=== PATIENT | female | born 1955 | race Caucasian/White ===

== ENCOUNTER 2016-08-08 16:34 | Inpatient (IN) | payer OTHER, MEDICAID ==
[~2016-08-08] VITALS: Ht 149.9 cm; Wt 51.7 kg
[2016-08-08 21:04] VITALS: BP_SYST 233
[2016-08-08 21:30] VITALS: BP_SYST 150
[2016-08-08] MEDS ORDERED: METO-290 PO (21:54)
[2016-08-08] MEDS ORDERED: CLON1PAT10 TD (21:54)
[2016-08-08] MEDS ORDERED: SPIR25TA4 PO (21:54)
[2016-08-08] MEDS ORDERED: ONDA4TAB5 PO (21:54)
[2016-08-08] MEDS ORDERED: METO25TA6 PO (21:54)
[2016-08-08] MEDS ORDERED: GABA-529 PO (21:54)
[2016-08-08] MEDS ORDERED: NEOM500T PO (21:54)
[2016-08-08] MEDS ORDERED: LEVO75TA7 PO (21:54)
[2016-08-08] MEDS ORDERED: LORA1TAB PO (21:54)
[2016-08-08] MEDS ORDERED: NOR10 PO (21:54)
[2016-08-08] MEDS ORDERED: ATEN50TA PO (21:54)
[2016-08-08] MEDS ORDERED: OMEP40CA33 PO (21:54)
[2016-08-08] MEDS ORDERED: ZOLP5TAB2 PO (21:54)
[2016-08-08] MEDS ORDERED: ARTT OP (22:07)
[2016-08-08] MEDS ORDERED: NEU400 PO (22:07)
[2016-08-08] MEDS ORDERED: ZOLPIDEM TARTRATE 5 MG TABLET PO PRN (23:30)
[2016-08-08] MEDS ORDERED: METOPROLOL TARTRATE 25 MG TABLET PO SCH (23:30)
[2016-08-08] MEDS ORDERED: METOCLOPRAMIDE HCL 10 MG TABLET PO PRN (23:30)
[2016-08-08] MEDS ORDERED: LORazepam 1 MG TABLET PO PRN (23:30)
[2016-08-08] MEDS ORDERED: ONDANSETRON 4 MG ODT TAB PO PRN (23:30)
[2016-08-08] MEDS ORDERED: LEVOFLOXACIN 250 MG/D5W 50 ML IV ONE (23:54)
[2016-08-09] MEDS ORDERED: SPIRONOLACTONE 25 MG TABLET (ALDACTONE) PO ONE (00:15)
[2016-08-09] MEDS: LEVOFLOXACIN 250 MG/D5W 50 ML IV SCH (00:17)
[2016-08-09] MEDS: SPIRONOLACTONE 25 MG TABLET (ALDACTONE) PO SCH ×4 (00:18→21:00)
[2016-08-09] MEDS: ACETAMINOPHEN/CODEINE 300 MG-30 MG TABLET PO PRN ×3 (00:19→12:15)
[2016-08-09 00:40] VITALS: BP_SYST 136
[2016-08-09 06:00] VITALS: BP_SYST 196
[2016-08-09] MEDS: LEVOTHYROXINE SODIUM 0.075 MG TABLET PO SCH (06:15)
[2016-08-09] MEDS: amLODIPine BESYLATE 10 MG TABLET PO SCH (06:16)
[2016-08-09] MEDS: INSULIN ASPART 100 UNITS/ML, 10 ML VIAL (NovoLOG) SUBCUT PRN ×3 (06:20→21:03)
[2016-08-09 06:58] LABS: BASOPHILS % (AUTO) 0.9 % (0.0-2.0); EOSINOPHILS # (AUTO) 0.1 K/uL (0.0-0.4); EOSINOPHILS % (AUTO) 3.8 % (0.0-4.0); HEMATOCRIT 29.1 % (36-48); HEMOGLOBIN 9.8 g/dL (12.0-16.0); LYMPHOCYTES % (AUTO) 26.5 % (20.5-51.5); MEAN CORPUSCULAR HEMOGLOBIN 32 pg (27-31); MEAN CORPUSCULAR HGB CONC 34 % (32-36); MEAN CORPUSCULAR VOLUME 94 fL (79.0-98.0); MONOCYTES # (AUTO) 0.3 K/uL (0.0-1.0); MONOCYTES % (AUTO) 7.2 % (1.7-9.3); NEUTROPHILS # (AUTO) 2.3 K/uL (1.8-7.7); NEUTROPHILS % (AUTO) 61.6 % (40.0-70.0); PLATELET COUNT (AUTO) 124 K/uL (130-430); RED BLOOD CELL COUNT(AUTO) 3.11 MIL/uL (4.2-6.2); RED CELL DISTRIBUTION WIDTH 13.2 % (9.0-15.0); WHITE BLOOD COUNT (AUTO) 3.7 K/uL (4.8-10.8)
[2016-08-09] MEDS ORDERED: DEXTROSE 50%-WATER 50 ML DISP.SYRIN IVP PRN ×2 (07:15)
[2016-08-09] MEDS ORDERED: GLUCOSE 15 GM GEL (in 37.5 GM TUBE) PO PRN ×2 (07:15)
[2016-08-09 07:23] LABS: ALBUMIN 2.4 g/dL (3.4-4.8); CALCIUM 7.5 mg/dL (8.4-11.0); CREATININE 1.45 mg/dL (0.55-1.30); INR 1.2 (0.8-1.2); PROTHROMBIN TIME 13.1 SECS (9.5-12.5); TOTAL BILIRUBIN 0.5 mg/dL (0.0-1.0); TOTAL PROTEIN, SERUM 6.2 g/dL (6.4-8.3)
[2016-08-09 09:00] LABS: POTASSIUM 2.8 mmol/L (3.5-5.1)
[2016-08-09] MEDS ORDERED: ATENOLOL 50 MG TABLET (TENORMIN) PO SCH (09:00)
[2016-08-09] MEDS: OMEPRAZOLE 20 MG CAPSULE.DR (PriLOSEC) PO SCH (10:16)
[2016-08-09] MEDS: GABAPENTIN 400 MG CAPSULE PO SCH ×3 (10:18→21:01)
[2016-08-09] MEDS: NEOMYCIN SULFATE 500 MG TABLET PO SCH ×3 (10:18→21:00)
[2016-08-09 10:20] VITALS: BP_SYST 178
[2016-08-09] MEDS: TEARS ARTIFICIAL 15 ML DROPS OP SCH (10:20)
[2016-08-09] MEDS ORDERED: KCL 40 mEq in 100 mL (PREMIX) 40 MEQ, LIDOCAINE JECT 2% PF 100 MG 75 MG in NS 150 ML IV ONE ×2 (10:30→15:30)
[2016-08-09] MEDS ORDERED: POTASSIUM CHLORIDE 40 MEQ, LIDOCAINE JECT 2% PF 100 MG 50 MG in NS 250 ML IV ONE ×8 (11:00→17:00)
[2016-08-09 12:05] VITALS: BP_SYST 154
[2016-08-09] MEDS ORDERED: COMMUNICATION ORDER XX ONE (12:30)
[2016-08-09] MEDS: METOPROLOL TARTRATE 25 MG TABLET PO SCH ×2 (14:23→21:01)
[2016-08-09 16:50] VITALS: BP_SYST 166
[2016-08-09 20:02] VITALS: BP_SYST 169
[2016-08-10 00:15] VITALS: BP_SYST 154
[2016-08-10] MEDS: LEVOFLOXACIN 250 MG/D5W 50 ML IV SCH ×2 (00:59→22:24)
[2016-08-10] MEDS: ACETAMINOPHEN/CODEINE 300 MG-30 MG TABLET PO PRN ×3 (01:04→21:14)
[2016-08-10 04:06] VITALS: BP_SYST 141
[2016-08-10] MEDS: METOPROLOL TARTRATE 25 MG TABLET PO SCH ×3 (06:16→21:08)
[2016-08-10 07:13] LABS: BILIRUBIN,URINE NEGATIVE (NEGATIVE); BLOOD, URINE 1+ (NEGATIVE); CLARITY/URINE HAZY (CLEAR); COLOR,URINE YELLOW (YELLOW); GLUCOSE,URINE NEGATIVE (NEGATIVE); KETONES,URINE NEGATIVE (NEGATIVE); LEUKOCYTE ESTERASE ,URINE TRACE (NEGATIVE); NITRITE, URINE NEGATIVE (NEGATIVE); PROTEIN URINE 2+ (NEGATIVE); UROBILINOGEN,URINE 0.2 (0.2-1.0)
[2016-08-10 07:35] LABS: BACTERIA,URINE FEW /HPF (None Seen); MUCUS,URINE None Seen /LPF (None Seen); RBC,URINE 0-3 /HPF (0-3); WBC,URINE 20-50 /HPF (0-3)
[2016-08-10 09:05] VITALS: BP_SYST 183
[2016-08-10] MEDS: NEOMYCIN SULFATE 500 MG TABLET PO SCH ×3 (09:27→21:08)
[2016-08-10] MEDS: LEVOTHYROXINE SODIUM 0.075 MG TABLET PO SCH (09:27)
[2016-08-10] MEDS: amLODIPine BESYLATE 10 MG TABLET PO SCH (09:27)
[2016-08-10] MEDS: SPIRONOLACTONE 25 MG TABLET (ALDACTONE) PO SCH ×3 (09:28→21:08)
[2016-08-10] MEDS: OMEPRAZOLE 20 MG CAPSULE.DR (PriLOSEC) PO SCH (09:28)
[2016-08-10] MEDS: GABAPENTIN 400 MG CAPSULE PO SCH ×3 (09:28→21:09)
[2016-08-10] MEDS: TEARS ARTIFICIAL 15 ML DROPS OP SCH (09:29)
[2016-08-10 11:43] VITALS: BP_SYST 174
[2016-08-10 12:33] LABS: CALCIUM 8.2 mg/dL (8.4-11.0); CREATININE 1.74 mg/dL (0.55-1.30); POTASSIUM 4.4 mmol/L (3.5-5.1)
[2016-08-10] MEDS: INSULIN ASPART 100 UNITS/ML, 10 ML VIAL (NovoLOG) SUBCUT PRN ×2 (12:46→21:11)
[2016-08-10] MEDS: cloNIDine HCL 0.1 MG TABLET PO PRN (14:27)
[2016-08-10 17:03] VITALS: BP_SYST 146
[2016-08-10 19:45] VITALS: BP_SYST 145
[2016-08-11] VITALS (9 sets, daily range): BP systolic 139–173
[2016-08-11] MEDS: METOPROLOL TARTRATE 25 MG TABLET PO SCH ×3 (06:04→21:16)
[2016-08-11] MEDS: LEVOTHYROXINE SODIUM 0.075 MG TABLET PO SCH (06:04)
[2016-08-11] MEDS: ACETAMINOPHEN/CODEINE 300 MG-30 MG TABLET PO PRN ×2 (06:05→14:42)
[2016-08-11] MEDS: INSULIN ASPART 100 UNITS/ML, 10 ML VIAL (NovoLOG) SUBCUT PRN ×3 (06:14→21:26)
[2016-08-11 07:31] LABS: BASOPHILS % (AUTO) 0.2 % (0.0-2.0); EOSINOPHILS # (AUTO) 0.1 K/uL (0.0-0.4); EOSINOPHILS % (AUTO) 2.1 % (0.0-4.0); HEMATOCRIT 33.6 % (36-48); HEMOGLOBIN 11.2 g/dL (12.0-16.0); LYMPHOCYTES # (AUTO) 0.9 K/uL (1.0-5.5); LYMPHOCYTES % (AUTO) 18.8 % (20.5-51.5); MEAN CORPUSCULAR HEMOGLOBIN 31 pg (27-31); MEAN CORPUSCULAR HGB CONC 33 % (32-36); MEAN CORPUSCULAR VOLUME 93 fL (79.0-98.0); MONOCYTES # (AUTO) 0.3 K/uL (0.0-1.0); MONOCYTES % (AUTO) 5.4 % (1.7-9.3); NEUTROPHILS # (AUTO) 3.6 K/uL (1.8-7.7); NEUTROPHILS % (AUTO) 73.5 % (40.0-70.0); PLATELET COUNT (AUTO) 137 K/uL (130-430); RED CELL DISTRIBUTION WIDTH 13.3 % (9.0-15.0)
[2016-08-11 07:57] LABS: WHITE BLOOD COUNT (AUTO) 4.9 K/uL (4.8-10.8)
[2016-08-11 08:00] LABS: ALBUMIN 2.6 g/dL (3.4-4.8); CALCIUM 8.2 mg/dL (8.4-11.0); CREATININE 1.99 mg/dL (0.55-1.30); POTASSIUM 4.9 mmol/L (3.5-5.1); THYROID STIMULATING HORMONE 4.52 uIu/mL (0.34-4.82); TOTAL BILIRUBIN 0.4 mg/dL (0.0-1.0); TOTAL PROTEIN, SERUM 6.9 g/dL (6.4-8.3)
[2016-08-11] MEDS: LACTOBACILLUS RHAMNOSUS GG 1 CAP CAPSULE PO SCH ×2 (09:00→20:48)
[2016-08-11] MEDS: OMEPRAZOLE 20 MG CAPSULE.DR (PriLOSEC) PO SCH (09:01)
[2016-08-11] MEDS: NEOMYCIN SULFATE 500 MG TABLET PO SCH ×3 (09:01→20:48)
[2016-08-11] MEDS: amLODIPine BESYLATE 10 MG TABLET PO SCH (09:03)
[2016-08-11] MEDS: SPIRONOLACTONE 25 MG TABLET (ALDACTONE) PO SCH ×3 (09:04→20:40)
[2016-08-11] MEDS: TEARS ARTIFICIAL 15 ML DROPS OP SCH (09:15)
[2016-08-11] MEDS: GABAPENTIN 300 MG CAPSULE PO SCH ×3 (09:19→20:48)
[2016-08-11] MEDS: cloNIDine HCL 0.1 MG TABLET PO PRN ×2 (12:03→20:39)
[2016-08-11] MEDS ORDERED: hydrALAZINE HCL 25 MG TABLET PO ONE (16:30)
[2016-08-11] MEDS: hydrALAZINE HCL 25 MG TABLET PO SCH (20:42)
[2016-08-11] MEDS: LEVOFLOXACIN 250 MG/D5W 50 ML IV SCH (22:26)
[2016-08-12 04:02] VITALS: BP_SYST 141
[2016-08-12] MEDS: ACETAMINOPHEN/CODEINE 300 MG-30 MG TABLET PO PRN ×2 (05:35→10:31)
[2016-08-12] MEDS: METOPROLOL TARTRATE 25 MG TABLET PO SCH ×2 (05:36→13:59)
[2016-08-12 08:20] VITALS: BP_SYST 159
[2016-08-12] MEDS: OMEPRAZOLE 20 MG CAPSULE.DR (PriLOSEC) PO SCH (11:31)
[2016-08-12] MEDS: GABAPENTIN 300 MG CAPSULE PO SCH ×2 (11:31→15:42)
[2016-08-12] MEDS: LEVOTHYROXINE SODIUM 0.075 MG TABLET PO SCH (11:32)
[2016-08-12] MEDS: NEOMYCIN SULFATE 500 MG TABLET PO SCH ×2 (11:32→15:42)
[2016-08-12] MEDS: LACTOBACILLUS RHAMNOSUS GG 1 CAP CAPSULE PO SCH (11:32)
[2016-08-12] MEDS: amLODIPine BESYLATE 10 MG TABLET PO SCH (11:33)
[2016-08-12] MEDS: hydrALAZINE HCL 25 MG TABLET PO SCH (11:33)
[2016-08-12] MEDS: SPIRONOLACTONE 25 MG TABLET (ALDACTONE) PO SCH ×2 (11:34→15:42)
[2016-08-12] MEDS: TEARS ARTIFICIAL 15 ML DROPS OP SCH (11:39)
[2016-08-12] MEDS: INSULIN ASPART 100 UNITS/ML, 10 ML VIAL (NovoLOG) SUBCUT PRN ×2 (11:43→17:21)
[2016-08-12 12:33] VITALS: BP_SYST 142
[2016-08-12 15:57] VITALS: BP_SYST 142
[2016-08-12 16:08] LABS: HEPATITIS A AB, IgM Negative (Negative); HEPATITIS B CORE AB, IgM Negative (Negative); HEPATITIS B SURFACE AG Negative (Negative)
[2016-08-12 16:35] VITALS: BP_SYST 152
[2016-08-14] MEDS ORDERED: cloNIDine HCL 0.2 MG/24 HR PATCH.TDWK TD SCH (09:00)
== END 2016-08-12 17:46 | DRG 371 ==
LOC: SMU 19:50
PROVIDERS: ADMIT Internal Medicine Hospice and Palliative Medicine; ATTEND Internal Medicine Infectious Disease
DX: K65.2 Spontaneous bacterial peritonitis (principal); K76.7 Hepatorenal syndrome; D61.818 Other pancytopenia; E44.0 Moderate protein-calorie malnutrition; N39.0 Urinary tract infection, site not specified; R18.8 Other ascites; K74.60 Unspecified cirrhosis of liver; E87.6 Hypokalemia; E11.22 Type 2 diabetes mellitus with diabetic chronic kidney disease; B19.20 Unspecified viral hepatitis C without hepatic coma; I12.9 Hypertensive chronic kidney disease with stage 1 through stage 4 chronic kidney disease, or unspecified chronic kidney disease; N18.9 Chronic kidney disease, unspecified; E03.9 Hypothyroidism, unspecified; K21.9 Gastro-esophageal reflux disease without esophagitis
CPT/HCPCS: 36415; 71010; 74181; 76700-TC; 76705; 80048; 80053; 80074; 81000-TC; 82105; 82140-TC; 82962; 83036; 83690-TC; 83735-TC; 84443-TC; 85025; 85610-TC; 85730-TC; 87045-TC; 87046; 87081; 87086; 89055; 97530-GP; J1815; J1956; J3480; J7050

== ENCOUNTER 2016-08-22 05:35 | Inpatient (IN) | payer OTHER, MEDICAID ==
[~2016-08-22] VITALS: Ht 149.9 cm; Wt 57.6 kg
[2016-08-22] VITALS (15 sets, daily range): BP systolic 114–162
[~2016-08-22 05:35] MED LIST: ARTT OP; ATEN50TA PO; CLON1PAT10 TD; LEVO75TA7 PO; LORA1TAB PO; METO-290 PO; METO25TA6 PO; NEOM500T PO; NEU400 PO; NOR10 PO; OMEP40CA33 PO; ONDA4TAB5 PO; SPIR25TA4 PO; ZOLP5TAB2 PO
--- NOTE | 2016-08-22 05:43 | NUR ---
Patient to ER bed 1 to gown for evaluation. Side rails up.
[2016-08-22] MEDS ORDERED: NACL 0.9% 1,000 ML IV ONE (05:54)
[2016-08-22] MEDS ORDERED: ONDANSETRON HCL 4 MG/2 ML VIAL IVP ONE (06:00)
--- NOTE | 2016-08-22 06:05 | NUR ---
O2 sat 97% on 10L via Non rebreather mask
--- NOTE | 2016-08-22 06:05 | NUR ---
[facility], C/O N/V AND COUGHING SINCE YESTERDAY, SOB, LEFT CHEST PAIN, ABDOMINAL PAIN, HIP AND LEG PAIN. PAIN LEVEL 6/10. PT O2 SAT 90% VIA MASK. MD AWARE. SAFETY MAINTAINED. CONTINUE TO MONITOR
[2016-08-22] MEDS ORDERED: METO25TA3 PO (06:23)
[2016-08-22 06:24] LABS: BASOPHILS % (AUTO) 0.2 % (0.0-2.0); EOSINOPHILS % (AUTO) 0.1 % (0.0-4.0); HEMOGLOBIN 8.7 g/dL (12.0-16.0); LYMPHOCYTES # (AUTO) 0.6 K/uL (1.0-5.5); LYMPHOCYTES % (AUTO) 7.8 % (20.5-51.5); MEAN CORPUSCULAR HEMOGLOBIN 30 pg (27-31); MEAN CORPUSCULAR HGB CONC 32 % (32-36); MEAN CORPUSCULAR VOLUME 93 fL (79.0-98.0); MONOCYTES % (AUTO) 3.6 % (1.7-9.3); NEUTROPHILS % (AUTO) 88.3 % (40.0-70.0); PLATELET COUNT (AUTO) 208 K/uL (130-430); RED BLOOD CELL COUNT(AUTO) 2.92 MIL/uL (4.2-6.2); RED CELL DISTRIBUTION WIDTH 13.8 % (9.0-15.0); WHITE BLOOD COUNT (AUTO) 7.9 K/uL (4.8-10.8)
[2016-08-22] MEDS ORDERED: SPIR50TA26 PO (06:24)
[2016-08-22 06:25] LABS: MONOCYTES # (AUTO) 0.3 K/uL (0.0-1.0)
[2016-08-22] MEDS ORDERED: HYDR100T25 PO (06:26)
[2016-08-22 06:28] LABS: CALCIUM 8.9 mg/dL (8.4-11.0); CREATININE 2.26 mg/dL (0.55-1.30)
[2016-08-22] MEDS ORDERED: DULR10 RC (06:28)
[2016-08-22] MEDS ORDERED: MAGN400O4 PO (06:29)
[2016-08-22 06:30] LABS: INR 1.2 (0.8-1.2); PROTHROMBIN TIME 13.1 SECS (9.5-12.5)
[2016-08-22] MEDS ORDERED: ACET-2165 PO ×2 (06:30→06:31)
[2016-08-22] MEDS ORDERED: ACET-1010 PO (06:32)
[2016-08-22] MEDS ORDERED: TYC3 PO (06:34)
[2016-08-22] MEDS ORDERED: LORA-258 PO (06:35)
[2016-08-22] MEDS ORDERED: NA P118E RC (06:37)
[2016-08-22 06:42] LABS: BLOOD GAS PH 7.345 (7.350-7.450)
[2016-08-22 06:43] LABS: ABG TOTAL HEMOGLOBIN 9.4 G/dL (12.0-18.0)
[2016-08-22 06:43] LABS: ALBUMIN 3.1 g/dL (3.4-4.8); TOTAL BILIRUBIN 0.3 mg/dL (0.0-1.0); TOTAL PROTEIN, SERUM 7.7 g/dL (6.4-8.3)
[2016-08-22 06:44] LABS: BLOOD GAS COHb% 0.3 % (0.5-1.5); BLOOD GAS HHB 4.2 % (0.0-6.0); BLOOD O2Hb% 95.5 % (94.0-97.0)
[2016-08-22] MEDS ORDERED: FLOEARD OP (06:46)
[2016-08-22 06:49] LABS: POTASSIUM 6.7 mmol/L (3.5-5.1)
--- NOTE | 2016-08-22 07:00 | NUR ---
Medication reconciliation completed with information provided by [employer]. Any prior medication reconciliation on file was reviewed and corrected.
[2016-08-22 07:03] LABS: BILIRUBIN,URINE NEGATIVE (NEGATIVE); BLOOD, URINE 1+ (NEGATIVE); CLARITY/URINE CLEAR (CLEAR); COLOR,URINE YELLOW (YELLOW); GLUCOSE,URINE NEGATIVE (NEGATIVE); KETONES,URINE NEGATIVE (NEGATIVE); LEUKOCYTE ESTERASE ,URINE NEGATIVE (NEGATIVE); NITRITE, URINE NEGATIVE (NEGATIVE); PROTEIN URINE 3+ (NEGATIVE); UROBILINOGEN,URINE 0.2 (0.2-1.0)
[2016-08-22 07:14] LABS: BACTERIA,URINE MANY /HPF (None Seen); WBC,URINE 0-3 /HPF (0-3)
[2016-08-22] MEDS ORDERED: SODIUM POLYSTYRENE SULFONATE 15 GM/60 ML UDBTL PO ONE (07:15)
--- NOTE | 2016-08-22 07:15 | NUR ---
RECEIVED REPORT FROM AUDIOMETRIC TECHNICIAN
--- NOTE | 2016-08-22 07:20 | NUR ---
RECEIVED PATIENT ON ER BED 1 ALERT,AWAKE AND ORIENTED.WITH BIPAP;TOLERATING SETTINGS WELL.WITH IVF OF NS INFUSING WELL;NO SIGNS AND SYMPTOMS OF INFILTRATION
[2016-08-22] MEDS ORDERED: PROCHLORPERAZINE EDISYLATE 10 MG/2 ML VIAL ONE (07:27)
[2016-08-22] MEDS ORDERED: DEXTROSE 50% JECT 50 ML DISP.SYRIN IVP ONE (07:30)
[2016-08-22] MEDS ORDERED: INSULIN REGULAR, HUMAN 10 UNITS/0.1 ML INJ IVP ONE (07:30)
[2016-08-22] MEDS ORDERED: CALCIUM GLUCONATE 1 GM/10 ML VIAL IVP ONE (07:30)
--- NOTE | 2016-08-22 07:32 | NUR ---
PATIENT GIVEN KAYEXALATE BUT STARTED VOMITING;VOMITING IS GREENISH IN COLOR;MODERATE AMOUNT;COMPAZINE GIVEN ORDERED Addendum: 08/22/16 at 0804 by KIRT DISCONTINUED BIPAP ORDERED.CHANGED TO NON-REBREATHER MASK AT 15 L/MAS ORDERED;O2 SAT=94%
[2016-08-22] MEDS ORDERED: ALBUTEROL SULFATE 0.083% 2.5 MG/3 ML VIAL.NEB INH ONE (07:45)
--- NOTE | 2016-08-22 08:06 | NUR ---
PATIENT ON BED ASLEEP WITH ONGOING BREATHING TREATMENT;TOLERATING WELL
[2016-08-22] MEDS ORDERED: PROCHLORPERAZINE EDISYLATE 10 MG/2 ML VIAL IVP ONE (08:15)
[2016-08-22] MEDS ORDERED: FUROSEMIDE 100 MG/10 ML VIAL IVP ONE (08:45)
[2016-08-22] MEDS ORDERED: NITROGLYCERIN 1 INCH (GM) OINT. TP ONE (08:45)
[2016-08-22] MEDS ORDERED: FUROSEMIDE 100 MG/10 ML VIAL ONE (09:08)
[2016-08-22] MEDS ORDERED: NITROGLYCERIN 1 INCH (GM) OINT. ONE (09:09)
--- NOTE | 2016-08-22 09:14 | NUR ---
Patient will be admitted to care of DR Jerez. Admitted to ICU unit. Will go to room 5 . Belongings list completed. Summary report printed. Report will be given at bedside.
--- NOTE | 2016-08-22 09:40 | NUR ---
ADMISSION NOTES. PT RECEIVED IN ROOM 5, ON NON REBREATHER MASK AT 10 L, PT DROWSY, HARDLY OPENS HER EYES, AUDIBLE WHEEZING, RHONCHI TO RIGHT SIDE, ADMITTING DX FLUID OVERLOAD, PT RESPONSIVE TO PAINFUL STIMULI, IV IN RIGHT A/C, HURTADO CATHETER INTACT WITH GOOD AMOUNT OF URINE, NO PERIPHERAL EDEMA, DRY SCAB ON TOP OF HER RIGHT FOOT NOTED.
[2016-08-22] MEDS ORDERED: LEVOFLOXACIN 500 MG/D5W 100 ML IV ONE (09:45)
[2016-08-22] MEDS ORDERED: cefTRIAXone 1 GM in D5W 50 ML IV SCH (09:45)
[2016-08-22] MEDS ORDERED: ACETAMINOPHEN/CODEINE 300 MG-30 MG TABLET PO PRN (10:00)
[2016-08-22] MEDS ORDERED: ACETAMINOPHEN 500 MG TABLET PO PRN (10:00)
[2016-08-22] MEDS ORDERED: LORazepam 1 MG TABLET PO PRN (10:00)
[2016-08-22] MEDS ORDERED: BISACODYL 10 MG/SUPPOSITORY RC PRN (10:00)
--- NOTE | 2016-08-22 10:15 | NUR ---
O2. DR GUTIERREZ IN THE UNIT. PLACED PT ON O2 VIA NASAL CANNULA AT [address] GUTIERREZ.
--- NOTE | 2016-08-22 10:20 | NUR ---
CONSULT: DR. LAMB CONSULT CALLED RE: CHF/PNA SPOKE TO ASHANTI.
--- NOTE | 2016-08-22 10:20 | NUR ---
FAMILY. PT'S SISTER DANICA CALLED. UPDATE ON STATUS GIVEN. PT'S SISTER STATED THAT PT DESIRED NOT TO BE RESUSCITATED IF PHYSICAL SITUATION BECOMES WORST. ASKED FAMILY TO BRING OVER COPY OF DURABLE POWER OF POWER SHOVEL OPERATOR AND PT'S CODE STATUS.
--- NOTE | 2016-08-22 10:23 | NUR ---
CONSULT: DR. Cony CORREA CONSULT CALLED RE: PNEUMONIA SPOKE TO IMAN (MD EXCHANGE).
--- NOTE | 2016-08-22 10:25 | NUR ---
CONSULT: DR. DAVIDSON CONSULT CALLED RE: TINO, ABNORMAL BUN/CREATININE. SPOKE TO SEAN (MD EXCHANGE).
--- NOTE | 2016-08-22 10:26 | NUR ---
CONSULT: DR. PURCELL CONSULT CALLED RE: CHF SPOKE TO BOY (MD EXCHANGE)
[2016-08-22 10:53] LABS: CALCIUM 8.8 mg/dL (8.4-11.0); CREATININE 2.29 mg/dL (0.55-1.30); POTASSIUM 5.5 mmol/L (3.5-5.1)
[2016-08-22] MEDS ORDERED: VANCOMYCIN HCL 1 GM/NS PREMIX 250 ML IV SCH ×2 (11:30)
--- NOTE | 2016-08-22 11:50 | NUR ---
RT NOTES Sputum induction done, which the pt. tolerated well. Pt is alert and able to demonstrate understanding of coughing exercises and sputum collection in a specimen sample cup, which was provided. Unable to produce any sputum at this time.
[2016-08-22] MEDS ORDERED: SODIUM CL 3% FOR INHALATION 15 ML VIAL.NEB INH ONE (11:51)
[2016-08-22] MEDS: NACL 0.9% 1,000 ML IV SCH ×2 (12:00→21:33)
--- NOTE | 2016-08-22 13:00 | NUR ---
O2. PT'S O2 SATURATION WENT TO 84 TO 89%, ENCOURAGED PT TO TAKE DEEP BREATHING, O2 SAT WENT TO BE BETWEEN 88 TO 90%, O2 INCREASED TO 6 L PER MIN, SATURATION NOTED 96%.
--- NOTE | 2016-08-22 13:15 | NUR ---
TO RADIOLOGY DEPT. TRANSPORTED PT TO CT SCAN VIA BED WITH PORTABLE CARDIAC MONITORING.
[2016-08-22] MEDS ORDERED: IPRATROPIUM BROM 0.5 MG/2.5 ML VIAL.NEB (ATROVENT) INH PRN (14:30)
[2016-08-22] MEDS ORDERED: FUROSEMIDE 40 MG/4 ML VIAL IVP ONE (14:30)
[2016-08-22] MEDS ORDERED: ALBUTEROL SULFATE 0.083% 2.5 MG/3 ML VIAL.NEB INH PRN (14:30)
[2016-08-22] MEDS ORDERED: methylPREDNISolone SOD SUCC 40 MG/ML VIAL IVP ONE (14:30)
[2016-08-22] MEDS: GABAPENTIN 400 MG CAPSULE PO SCH ×2 (14:44→21:33)
[2016-08-22] MEDS: METOPROLOL SUCCINATE 25 MG TAB.SR.24H (TOPROL XL) PO SCH ×2 (14:45→21:33)
[2016-08-22] MEDS: MORPHINE 4 MG/ML INJ. SYRINGE IVP PRN (14:46)
[2016-08-22 15:49] LABS: BARBITURATE, URINE NEGATIVE (NEG <=200); BENZODIAZEPINE, URINE NEGATIVE (NEG <=150); CANNABINOID, URINE NEGATIVE (NEG <=50); COCAINE, URINE NEGATIVE (NEG <=150); METHAMPHETAMINES SCREEN,URINE NEGATIVE (NEG <=500); OPIATE, URINE POSITIVE (NEG <=100); PHENCYCLIDINE SCREEN,URINE NEGATIVE (NEG <=25); UR TRICYCLIC ANTIDEPRESSANTS NEGATIVE (NEG <=300); URINE AMPHETAMINE NEGATIVE (NEG <=500); URINE METHADONE NEGATIVE (NEG <=200); URINE OXYCODONE SCREEN NEGATIVE (NEG <=100); URINE PROPOXYPHENE SCREEN NEGATIVE (NEG <=300)
--- NOTE | 2016-08-22 16:30 | NUR ---
PICC. TIME OUT DONE PRIOR TO PICC INSERTION.
--- NOTE | 2016-08-22 16:45 | NUR ---
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
[2016-08-22] MEDS: PIPERACILLIN/TAZO 2.25G/DEX-IS 50 ML IV SCH (17:29)
--- NOTE | 2016-08-22 17:30 | NUR ---
PICC. PICC NURSE STATED THAT HE HAD SEEN THE XRAY RESULT. PICC WAS PULLED BACK RECOMMENDED BY RADIOLOGIST.
--- NOTE | 2016-08-22 19:00 | NUR ---
XRAY. CALLED JUAN OF RADIOLOGY DEPT. DR GUTIERREZ IN THE UNIT, GASTROGRAFFIN DYE TO BE USED FOR SMALL BOWEL FOLLOW THROUGH.
[2016-08-22] MEDS: VANCOMYCIN HCL 1,000 MG in NS 250 ML IV SCH (19:15)
--- NOTE | 2016-08-22 19:15 | NUR ---
Initial Notes Received patient resting in bed. A/o x 2. No s/s of any distress noted. PICC line noted to TESSA double lumen, no infiltrate, good blood return noted. Mild weakness noted to all extremities, bed rest. F/C noted with clear yellow urine. Bed in low position with call light within reach. Will cont to monitor.
[2016-08-22] MEDS ORDERED: GASTROGRAFIN 120 ML ONE (19:28)
[2016-08-22] MEDS: IPRATROPIUM BROM 0.5 MG/2.5 ML VIAL.NEB (ATROVENT) INH SCH (19:28)
[2016-08-22] MEDS: ALBUTEROL SULFATE 0.083% 2.5 MG/3 ML VIAL.NEB INH SCH (19:28)
[2016-08-22] MEDS: FUROSEMIDE 100 MG in D5W 90 ML IV SCH (19:50)
[2016-08-22] MEDS ORDERED: ZOLPIDEM TARTRATE 5 MG TABLET PO PRN (21:00)
[2016-08-22] MEDS: LACTOBACILLUS RHAMNOSUS GG 1 CAP CAPSULE PO SCH (21:31)
[2016-08-22] MEDS: hydrALAZINE HCL 25 MG TABLET PO SCH (21:31)
[2016-08-23] VITALS (16 sets, daily range): BP systolic 143–173
--- NOTE | 2016-08-23 | NUR ---
Pt resting Pt is resting comfortably at this time. No s/s of pain or any distress noted. Bed in low position with call light within reach. Will cont to monitor.
[2016-08-23] MEDS: IPRATROPIUM BROM 0.5 MG/2.5 ML VIAL.NEB (ATROVENT) INH SCH ×4 (01:28→19:05)
[2016-08-23] MEDS: ALBUTEROL SULFATE 0.083% 2.5 MG/3 ML VIAL.NEB INH SCH ×4 (01:28→19:05)
--- NOTE | 2016-08-23 03:00 | NUR ---
Decreased o2 at 3L Sabrina RT decreased O2 to 3L via n/c. Will monitor patient.
--- NOTE | 2016-08-23 03:20 | NUR ---
Withdrew blood from PICC Withdrew blood from PICC for trop test. No infiltrate and with good blood return.
[2016-08-23] MEDS: MORPHINE 4 MG/ML INJ. SYRINGE IVP PRN ×5 (03:22→23:23)
--- NOTE | 2016-08-23 03:40 | NUR ---
Admin Morphine PRN for pain Admin Morphine PRN for 10/10 abd pain. Will reassess after one hour.
--- NOTE | 2016-08-23 05:41 | NUR ---
Assisted with AM care Assited pt with AM care with oral care. No s/s of any pain noted. Call light within reach. Will cont to monitor.
--- NOTE | 2016-08-23 06:00 | NUR ---
Decreased O2 to 2L Sabrina RT decreased o2 to 2L via n/c. Will cont to monitor patient.
[2016-08-23] MEDS: METOPROLOL SUCCINATE 25 MG TAB.SR.24H (TOPROL XL) PO SCH ×3 (06:06→21:44)
[2016-08-23] MEDS: LEVOTHYROXINE SODIUM 0.075 MG TABLET PO SCH (06:06)
[2016-08-23] MEDS: NACL 0.9% 1,000 ML IV SCH (06:08)
[2016-08-23] MEDS: PIPERACILLIN/TAZO 2.25G/DEX-IS 50 ML IV SCH ×4 (06:21→23:18)
[2016-08-23 06:52] LABS: BASOPHILS % (AUTO) 0.1 % (0.0-2.0); HEMATOCRIT 25.1 % (36-48); HEMOGLOBIN 8.2 g/dL (12.0-16.0); LYMPHOCYTES # (AUTO) 0.3 K/uL (1.0-5.5); LYMPHOCYTES % (AUTO) 4.6 % (20.5-51.5); MEAN CORPUSCULAR HEMOGLOBIN 31 pg (27-31); MEAN CORPUSCULAR HGB CONC 33 % (32-36); MONOCYTES # (AUTO) 0.1 K/uL (0.0-1.0); MONOCYTES % (AUTO) 1.4 % (1.7-9.3); NEUTROPHILS # (AUTO) 5.8 K/uL (1.8-7.7); NEUTROPHILS % (AUTO) 93.9 % (40.0-70.0); PLATELET COUNT (AUTO) 155 K/uL (130-430); RED BLOOD CELL COUNT(AUTO) 2.65 MIL/uL (4.2-6.2); WHITE BLOOD COUNT (AUTO) 6.2 K/uL (4.8-10.8)
--- NOTE | 2016-08-23 07:12 | NUR ---
Final notes Pt is awake and more alert at this time, waiting for breakfast. No s/s of any distress noted. All needs met and anticipated by noc nurses. Bed in low position with side rails up x2. Call light within reach. Endorsed
[2016-08-23 07:14] LABS: CALCIUM 8.5 mg/dL (8.4-11.0)
--- NOTE | 2016-08-23 07:15 | NUR ---
ASSUMPTION OF CARE RECEIVED REPORT FROM ANEESH HORVATH. PT AWAKE, ALERT AND ORIENTED IN BED. 2L O2 NASAL CANNULA ON PT WITH 98% O2 SATURATION. IV PATENT AND INTACT WITH IV FLUIDS RUNNING. VITAL SIGNS STABLE. NO OBSERVED SIGNS OF DISTRESS. PT DENIES PAIN AND OTHER DIFFICULTIES AT THIS TIME. PT VERBALIZES UNDERSTANDING OF USE OF CALL LIGHT. WILL CONTINUE TO MONITOR PT.
--- NOTE | 2016-08-23 07:45 | NUR ---
CALLED SPOKE TO DR LAMB REGARDING CRITICAL ABG VALUES. NO NEW ORDERS RECEIVED.
[2016-08-23 07:46] LABS: ALBUMIN 2.8 g/dL (3.4-4.8); CREATININE 2.03 mg/dL (0.55-1.30); PHOSPHORUS 6.2 mg/dL (2.7-4.5); THYROID STIMULATING HORMONE 2.58 uIu/mL (0.34-4.82); TOTAL BILIRUBIN 0.3 mg/dL (0.0-1.0); TOTAL PROTEIN, SERUM 7.2 g/dL (6.4-8.3)
--- NOTE | 2016-08-23 07:48 | NUR ---
Nutrition Update Tiago Scale 18 noted. Pt admitted for: Fluid overload. Diet: Renal Standard 2 gm Na, 3gm K, 1 gm Phosphorus BMI: 25.7 kg/m2. RD to follow per nutrition care standards.
[2016-08-23 07:58] LABS: IRON (SERUM) 38 mcg/dL (37-145); TOTAL IRON BIND. CAPACITY 159 ug/dL (250-450)
[2016-08-23 08:03] LABS: BLOOD GAS BASE EXCESS -6.6 mmol/L (-3.0-3.0)
[2016-08-23 08:04] LABS: ABG TOTAL HEMOGLOBIN 9.5 G/dL (12.0-18.0); BLOOD GAS COHb% 0.2 % (0.5-1.5); BLOOD GAS HHB 12.2 % (0.0-6.0); BLOOD O2Hb% 87.2 % (94.0-97.0)
[2016-08-23 08:09] LABS: POTASSIUM 5.9 mmol/L (3.5-5.1)
[2016-08-23 08:15] LABS: MEAN CORPUSCULAR VOLUME 95 fL (79.0-98.0)
--- NOTE | 2016-08-23 08:39 | NUR ---
CALLED SPOKE TO DR TALBOT REGARDING CRITICAL CHEMISTRY VALUES. NEW ORDERS RECEIVED.
[2016-08-23] MEDS ORDERED: SODIUM POLYSTYRENE SULFONATE 15 GM/60 ML UDBTL PO ONE (08:45)
[2016-08-23] MEDS: hydrALAZINE HCL 25 MG TABLET PO SCH ×2 (08:52→21:43)
[2016-08-23] MEDS: TEARS ARTIFICIAL 15 ML DROPS OP SCH (08:52)
[2016-08-23] MEDS: GABAPENTIN 400 MG CAPSULE PO SCH ×3 (08:53→21:43)
[2016-08-23] MEDS: LACTOBACILLUS RHAMNOSUS GG 1 CAP CAPSULE PO SCH ×2 (08:53→21:42)
[2016-08-23] MEDS: FUROSEMIDE 100 MG in D5W 90 ML IV SCH (09:14)
--- NOTE | 2016-08-23 10:20 | NUR ---
XRAY. CURING PICKLING PACKER HERE TO START SMALL BOWEL FOLLOW THROUGH.
[2016-08-23] MEDS ORDERED: methylPREDNISolone SOD SUCC/PF 62.5 MG/ML VIAL IVP ONE (10:30)
--- NOTE | 2016-08-23 11:30 | NUR ---
HYGIENE. PT NOTED TO HAVE BROWNISH STAIN TO HER BOTTOM SHEET WHEN SHE TURNED IN BED. LOOSE STOOL NOTED. INCONTINENT CARE PROVIDED. Z-GUARD LOTION APPLIED TO SACRAL AREA TO PREVENT ANY FURTHER SKIN INJURY.
[2016-08-23] MEDS: 0.45% NACL 1,000 ML IV SCH (12:33)
--- NOTE | 2016-08-23 14:00 | NUR ---
FAMILY. PT'S SISTER CAME IN. SHE BROUGHT UP THE CODE STATUS. PT FIRMLY SAID THAT SHE DID NOT WANT TO BE ON LIFE [employer] IF EVER SHE GOES INTO CARDIAC ARREST. FAMILY WILL BE BRINGING IN A COPY OF HER MEDICAL DECISION AND DPOA.
--- NOTE | 2016-08-23 14:15 | NUR ---
MEDS. PT COMPLETED ABDOMINAL XRAYS. KAYEXALATE 60 GRAMS ADMINISTERED.
[2016-08-23] MEDS: ONDANSETRON HCL 4 MG/2 ML VIAL IVP PRN (15:06)
--- NOTE | 2016-08-23 15:06 | NUR ---
MEDS. PT ANXIOUSLY CALLING FOR HELP, HAD LARGE AMOUNT OF YELLOWISH EMESIS, ORAL CARE, SKIN CARE PROVIDED. MEDICATED WITH ZOFRAN 4 MG IVP.
--- NOTE | 2016-08-23 15:55 | NUR ---
ENDORSEMENT OF CARE PT SAFELY TRANSFERRED TO TELEMETRY ROOM 112B VIA BED BY TWO RNs. PT ON 3L NC VIA PORTABLE O2 TANK, PORTABLE VITAL SIGN MONITOR IN USE. VITAL SIGNS STABLE, NO SIGNS OF DISTRESS NOTED. BEDSIDE REPORT GIVEN TO ANEESH MIRELES.
[2016-08-23] MEDS ORDERED: COMMUNICATION ORDER XX ONE ×3 (16:45→17:15)
[2016-08-23] MEDS: OFLOXACIN 0.3% OPHTHALMIC DROPS 5 ML OP SCH ×3 (17:00→21:45)
[2016-08-23] MEDS ORDERED: PREDFORTE OP SCH (17:15)
[2016-08-23] MEDS: NEOMYCIN SULFATE 500 MG TABLET PO SCH ×3 (17:26→23:30)
[2016-08-23] MEDS ORDERED: PATIENT'S OWN EENT OP SCH (17:30)
--- NOTE | 2016-08-23 17:30 | NUR ---
CM DC PLANNING: ASSESSMENT ATTEMPTED X 3 TO OBTAIN DC PLANNING ASSESSMENT WITH Pt AND/OR FAMILY AT BEDSIDE. FIRST TIME: Pt NEEDED X-RAY AT BEDSIDE AND NEEDED TRISH-CARE; SECOND TIME: FAMILY AT BEDSIDE, BUT RN DISCUSSING DNR STATUS AND Pt BECAME VERY UPSET; THIRD TIME: Pt IN PROCESS OF BEING TRANSFERRED TO [facility] FLOOR, Rm. 112-B.
--- NOTE | 2016-08-23 20:00 | NUR ---
Initial PM Note Pt was received lying in bed fully awake, alert and oriented X4. Speech is clear and pt is able to make her needs known. No acute distress noted. No c/o pain or discomfort. Skin is warm and dry to touch. No signs or symptoms of hypoglycemia or hyperglycemia noted. IVF is infusing well via TESSA PICC with PICC dressing dry and intact. No active Bleeding noted at the PICC site, but old dry blood stain noted at the puncture site. Crowder Cath to gravity drainage is patent with clear yellowish urine. Fall and Safety precautions are in place. Call light is with pt and bed alarm is on. Bed is in the lowest and locked positions. Pt was instructed to call for assistance as needed and pt verbalized understanding. Will continue to monitor pt.
[2016-08-23] MEDS: KETOROLAC 0.5% OP SCH (21:00)
[2016-08-23] MEDS: PATIENT'S OWN EENT OP SCH (21:00)
[2016-08-23] MEDS: FUROSEMIDE 20 MG/2 ML VIAL IVP SCH (21:42)
--- NOTE | 2016-08-23 21:44 | NUR ---
Insomnia Ambien 5mg given po per pt's request for sleep.
[2016-08-23] MEDS: INSULIN REGULAR, HUMAN 100 UNITS/ML, 10 ML VIAL (novoLIN R) SUBCUT PRN (21:52)
--- NOTE | 2016-08-23 21:52 | NUR ---
Blood Sugar Accucheck 378. Skin remains warm and dry to touch. Regular Insulin 10 units given SQ. Pt was given HS snacks and she ate 100%. Will continue to monitor pt.
--- NOTE | 2016-08-23 22:45 | NUR ---
Rounds Pt is sleeping without any distress noted. Call light is with pt and bed alarm is on.
--- NOTE | 2016-08-23 23:23 | NUR ---
Pain Medication Morphine 4mg was given IV per pt's request for c/o low back pain with relief.
[2016-08-24 00:02] VITALS: BP_SYST 165
[2016-08-24] MEDS: 0.45% NACL 1,000 ML IV SCH ×2 (01:46→18:04)
[2016-08-24] MEDS: IPRATROPIUM BROM 0.5 MG/2.5 ML VIAL.NEB (ATROVENT) INH SCH ×5 (01:48→23:34)
[2016-08-24] MEDS: ALBUTEROL SULFATE 0.083% 2.5 MG/3 ML VIAL.NEB INH SCH ×4 (01:48→23:34)
--- NOTE | 2016-08-24 02:00 | NUR ---
Rounds Pt is sleeping comfortably in bed. Call light is with pt and bed alarm is on.
[2016-08-24 03:50] VITALS: BP_SYST 160
--- NOTE | 2016-08-24 04:00 | NUR ---
Rounds Pt is resting comfortably in bed. Fall and safety precautions are in place.
[2016-08-24] MEDS: PIPERACILLIN/TAZO 2.25G/DEX-IS 50 ML IV SCH ×4 (06:15→23:23)
[2016-08-24] MEDS: NEOMYCIN SULFATE 500 MG TABLET PO SCH ×4 (06:16→23:23)
[2016-08-24] MEDS: LEVOTHYROXINE SODIUM 0.075 MG TABLET PO SCH (06:16)
[2016-08-24] MEDS: METOPROLOL SUCCINATE 25 MG TAB.SR.24H (TOPROL XL) PO SCH ×3 (06:16→22:13)
[2016-08-24] MEDS: INSULIN REGULAR, HUMAN 100 UNITS/ML, 10 ML VIAL (novoLIN R) SUBCUT PRN ×2 (06:19→21:03)
--- NOTE | 2016-08-24 06:23 | NUR ---
Pain Medication Morphine 4mg was given IV per pt's request for c/o low back pain with relief.
[2016-08-24] MEDS: MORPHINE 4 MG/ML INJ. SYRINGE IVP PRN ×5 (06:28→22:14)
--- NOTE | 2016-08-24 06:57 | NUR ---
Closing Note Pt is resting comfortably in bed. All pt's needs were attended to. No fall or injury noted this shift. Accucheck 211 this AM and 4 units Regular Insulin given SQ. Skin remains warm and dry to touch. Will endorse to day shift nurse.
--- NOTE | 2016-08-24 07:50 | NUR ---
Home Medication to Pharmacy Pt's home medication Acular 0.5% eye drop 1 bottle was taken to Pharmacy. Receipt is with pt.
[2016-08-24 07:54] LABS: BASOPHILS % (AUTO) 0.1 % (0.0-2.0); EOSINOPHILS % (AUTO) 0.1 % (0.0-4.0); HEMATOCRIT 26.7 % (36-48); HEMOGLOBIN 8.8 g/dL (12.0-16.0); LYMPHOCYTES # (AUTO) 0.5 K/uL (1.0-5.5); LYMPHOCYTES % (AUTO) 5.9 % (20.5-51.5); MEAN CORPUSCULAR HEMOGLOBIN 31 pg (27-31); MEAN CORPUSCULAR HGB CONC 33 % (32-36); MEAN CORPUSCULAR VOLUME 95 fL (79.0-98.0); MONOCYTES # (AUTO) 0.4 K/uL (0.0-1.0); MONOCYTES % (AUTO) 4.6 % (1.7-9.3); NEUTROPHILS # (AUTO) 6.8 K/uL (1.8-7.7); NEUTROPHILS % (AUTO) 89.3 % (40.0-70.0); PLATELET COUNT (AUTO) 198 K/uL (130-430); RED BLOOD CELL COUNT(AUTO) 2.81 MIL/uL (4.2-6.2); WHITE BLOOD COUNT (AUTO) 7.7 K/uL (4.8-10.8)
--- NOTE | 2016-08-24 07:55 | NUR ---
INITIAL ROUNDS Received pt AAOx4, no s/s resp distress, noted pt coughing sporadically. No c/o pain or discomfort. Pt sitting up in bed eating breakfast. IVF infusing well to TESSA PICC line at ordered rate with no s/s infiltration/infection to site. BLE with SCDs in place. Crowder draining to gravity with yellow urine noted. Plan of care for the day reviewed with pt-pt verbalized her understanding. Pain management, disease process, skin and safety discussed-teach back done. Contact phone number explained, call light within reach.
[2016-08-24 07:56] LABS: CALCIUM 8.6 mg/dL (8.4-11.0); CREATININE 2.13 mg/dL (0.55-1.30); POTASSIUM 4.5 mmol/L (3.5-5.1)
[2016-08-24 08:37] VITALS: BP_SYST 156
[2016-08-24] MEDS: PATIENT'S OWN EENT OP SCH ×2 (09:00→13:00)
[2016-08-24] MEDS: KETOROLAC 0.5% OP SCH ×2 (09:00→13:00)
[2016-08-24] MEDS: LACTOBACILLUS RHAMNOSUS GG 1 CAP CAPSULE PO SCH ×2 (09:33→20:51)
[2016-08-24] MEDS: hydrALAZINE HCL 25 MG TABLET PO SCH ×2 (09:35→20:51)
[2016-08-24] MEDS: GABAPENTIN 400 MG CAPSULE PO SCH ×3 (09:35→20:49)
[2016-08-24] MEDS: FUROSEMIDE 20 MG/2 ML VIAL IVP SCH ×2 (09:36→20:51)
[2016-08-24] MEDS: TEARS ARTIFICIAL 15 ML DROPS OP SCH (09:37)
[2016-08-24] MEDS: OFLOXACIN 0.3% OPHTHALMIC DROPS 5 ML OP SCH ×4 (09:39→20:52)
--- NOTE | 2016-08-24 11:00 | NUR ---
ROUNDS Pt resting quietly in bed with no s/s resp distress, continues to have non-productive cough, no further c/o pain or discomfort. Needs met, call light within reach.
--- NOTE | 2016-08-24 11:54 | NUR ---
MD Dr. Jerez here and informed him that pt having non-productive cough post breathing treatment and that pt c/o neuropathy.
[2016-08-24 13:43] VITALS: BP_SYST 130
--- NOTE | 2016-08-24 14:45 | NUR ---
ROUNDS/PAIN/BM Pt with no c/o SOB, noted pt with sporadic non-productive cough. Pt c/o pain to her abd and c/o neuropathy pain to both of her feet-pt given Morphine as ordered. Pt had BM, pt cleaned up and clean chux placed. Needs met, call light within reach.
[2016-08-24] MEDS: VANCOMYCIN HCL 1,000 MG in NS 250 ML IV SCH (15:56)
--- NOTE | 2016-08-24 16:40 | NUR ---
ROUNDS Pt now resting quietly in bed with no further c/o pain or discomfort. No s/s resp distress. Call light within reach.
[2016-08-24 16:44] VITALS: BP_SYST 155
--- NOTE | 2016-08-24 18:50 | NUR ---
CLOSING NOTE Pt resting quietly in bed with no c/o SOB, pt continues to have non-productive cough. No further c/o pain or discomfort. Pt's eye drops situation now resolved and in medication room. Needs met, call light within reach.
--- NOTE | 2016-08-24 19:21 | NUR ---
Initial PM Note Pt was received lying in bed fully awake, alert and oriented X4. Speech is clear and pt is able to make her needs known. No acute distress noted. No c/o pain or discomfort. Skin is warm and dry to touch. No signs or symptoms of hypoglycemia or hyperglycemia noted. IVF of 1/2NS is infusing well via TESSA PICC at 75ml/hr. PICC dressing dry and intact. Crowder Cath to gravity drainage is patent with ancelmo colored urine. Fall and Safety precautions are in place. Call light is with pt and bed alarm is on. Bed is in the lowest and locked positions. Pt was instructed to call for assistance as needed and pt verbalized understanding. Will continue to monitor pt.
[2016-08-24 20:00] VITALS: BP_SYST 179
[2016-08-24] MEDS: ONDANSETRON HCL 4 MG/2 ML VIAL IVP PRN (20:52)
--- NOTE | 2016-08-24 20:52 | NUR ---
Nausea Medication Zofran 4mg was given IV for c/o nausea with good effect. No emesis noted.
--- NOTE | 2016-08-24 21:03 | NUR ---
Blood Sugar Accucheck 152. Skin remains warm and dry to touch. Regular Insulin 2 units given SQ. Pt was given HS snacks and she ate 100%. Will continue to monitor pt.
--- NOTE | 2016-08-24 22:14 | NUR ---
Pain Medication Morphine 4mg was given IV per pt's request for c/o low back pain with relief.
[2016-08-25] VITALS (7 sets, daily range): BP systolic 146–171
--- NOTE | 2016-08-25 | NUR ---
Rounds Pt is resting comfortably in bed. Call light is with pt and bed alarm is on.
--- NOTE | 2016-08-25 02:01 | NUR ---
Anxiety Ativan 0.5mg was given po for c/o anxiety with relief.
[2016-08-25] MEDS: IPRATROPIUM BROM 0.5 MG/2.5 ML VIAL.NEB (ATROVENT) INH SCH ×6 (03:29→23:28)
[2016-08-25] MEDS: ALBUTEROL SULFATE 0.083% 2.5 MG/3 ML VIAL.NEB INH SCH ×6 (03:29→23:28)
[2016-08-25] MEDS: MORPHINE 4 MG/ML INJ. SYRINGE IVP PRN ×4 (03:32→21:54)
--- NOTE | 2016-08-25 03:32 | NUR ---
Pain Medication Morphine 4mg was given IV per pt's request for c/o low back pain with relief.
--- NOTE | 2016-08-25 05:00 | NUR ---
Rounds Pt is sleeping comfortably in bed. Call light is with pt and bed alarm is on.
[2016-08-25] MEDS: NEOMYCIN SULFATE 500 MG TABLET PO SCH ×4 (06:01→23:33)
[2016-08-25] MEDS: METOPROLOL SUCCINATE 25 MG TAB.SR.24H (TOPROL XL) PO SCH ×2 (06:01→21:37)
[2016-08-25] MEDS: LEVOTHYROXINE SODIUM 0.075 MG TABLET PO SCH (06:01)
[2016-08-25] MEDS: PIPERACILLIN/TAZO 2.25G/DEX-IS 50 ML IV SCH ×4 (06:02→23:18)
--- NOTE | 2016-08-25 06:28 | NUR ---
Closing Note Pt is resting comfortably in bed and IVF is infusing well via TESSA PICC. All pt's needs were attended to. No fall or injury noted this shift. Accucheck 126 this AM and no Insulin coverage needed. Skin remains warm and dry to touch. Will endorse to day shift nurse.
[2016-08-25 07:19] LABS: BASOPHILS % (AUTO) 0.3 % (0.0-2.0); EOSINOPHILS # (AUTO) 0.1 K/uL (0.0-0.4); EOSINOPHILS % (AUTO) 2.7 % (0.0-4.0); HEMATOCRIT 25.8 % (36-48); HEMOGLOBIN 8.5 g/dL (12.0-16.0); LYMPHOCYTES # (AUTO) 0.8 K/uL (1.0-5.5); LYMPHOCYTES % (AUTO) 14.4 % (20.5-51.5); MEAN CORPUSCULAR HEMOGLOBIN 31 pg (27-31); MEAN CORPUSCULAR HGB CONC 33 % (32-36); MEAN CORPUSCULAR VOLUME 94 fL (79.0-98.0); MONOCYTES # (AUTO) 0.4 K/uL (0.0-1.0); MONOCYTES % (AUTO) 7.2 % (1.7-9.3); NEUTROPHILS # (AUTO) 4.1 K/uL (1.8-7.7); NEUTROPHILS % (AUTO) 75.4 % (40.0-70.0); PLATELET COUNT (AUTO) 186 K/uL (130-430); RED BLOOD CELL COUNT(AUTO) 2.76 MIL/uL (4.2-6.2); RED CELL DISTRIBUTION WIDTH 13.5 % (9.0-15.0); WHITE BLOOD COUNT (AUTO) 5.4 K/uL (4.8-10.8)
[2016-08-25 07:30] LABS: ALBUMIN 2.5 g/dL (3.4-4.8); CALCIUM 7.8 mg/dL (8.4-11.0); CREATININE 2.03 mg/dL (0.55-1.30); PHOSPHORUS 5.7 mg/dL (2.7-4.5); POTASSIUM 4.2 mmol/L (3.5-5.1); TOTAL BILIRUBIN 0.3 mg/dL (0.0-1.0); TOTAL PROTEIN, SERUM 6.1 g/dL (6.4-8.3)
--- NOTE | 2016-08-25 07:52 | NUR ---
RECEIVED REPORT FROM ANEESH CHAKRABORTY. PT IS LAYING IN BED WITH HOB ELEVATED. GETTING BREATHING TREATMENT WITH RT AT BEDSIDE. NO SIGNS OF ACUTE RESPIRATORY DISTRESS, NO SOB. PT ON 2L O2 AND SATURATING AT 100% O2. SKIN WARM DRY AND COLOR NORMAL FOR ETHNICITY. PICC LINE INTACT AND NO SIGNS OF REDNESS/SWELLING, NO ACTIVE BLEEDING. PT IVF INFUSING WELL. HURTADO CATH INTACT AND DRAINING WELL TO GRAVITY. BED AT LOWEST POSITION, CALL LIGHT WITHIN REACH, SIDE RAILS X3, BED ALARM ON. ALL NEEDS MET. WILL CONTINUE TO MONITOR.
[2016-08-25] MEDS: hydrALAZINE HCL 25 MG TABLET PO SCH ×2 (08:31→21:38)
[2016-08-25] MEDS: LACTOBACILLUS RHAMNOSUS GG 1 CAP CAPSULE PO SCH ×2 (08:31→21:38)
[2016-08-25] MEDS: 0.45% NACL 1,000 ML IV SCH (08:32)
[2016-08-25] MEDS: FUROSEMIDE 20 MG/2 ML VIAL IVP SCH (08:33)
[2016-08-25] MEDS: OFLOXACIN 0.3% OPHTHALMIC DROPS 5 ML OP SCH ×5 (08:36→21:41)
[2016-08-25] MEDS: TEARS ARTIFICIAL 15 ML DROPS OP SCH (08:36)
[2016-08-25] MEDS: GABAPENTIN 300 MG CAPSULE PO SCH ×3 (09:53→21:38)
--- NOTE | 2016-08-25 10:00 | NUR ---
ROUNDING: PT AAOX4. NO NOTABLE SIGNS OF DISTRESS, NO SOB. SKIN WARM DRY AND COLOR NORMAL FOR ETHNICITY. PICC LINE INTACT AND NO SIGNS OF REDNESS/SWELLING. AM MEDS GIVE PER MD ORDER, PT TOLERATED WELL. PAIN MEDS GIVE PER MD ORDER AND PAIN MED EFFECTIVE PER PAIN SLIDING SCALE. PT RESTING IN BED COMFORTABLY. HURTADO CATH DRAINING WELL TO GRAVITY. ALL NEEDS MET. WILL CONTINUE TO MONITOR.
[2016-08-25] MEDS: INSULIN REGULAR, HUMAN 100 UNITS/ML, 10 ML VIAL (novoLIN R) SUBCUT PRN ×2 (11:34→21:52)
--- NOTE | 2016-08-25 12:00 | NUR ---
ROUNDING: PT AAOX4. NO ACUTE SIGNS OF RESPIRATORY DISTRESS, NO SOB. SKIN COLOR NORMAL FOR ETHNICITY. SCD IN PLACE. PICC LINE INTACT AND NO REDNESS/SWELLING. HURTADO CATH INTACT AND DRAINING WELL TO GRAVITY. PT SITTING UP EATING LUNCH. DENIES PAIN/DISCOMFORT AT THIS TIME. NOON MEDS GIVE PER MD ORDER, PT TOLERATED WELL. ALL NEEDS MET. CONTINUE TO MONITOR.
--- NOTE | 2016-08-25 14:00 | NUR ---
ROUNDING: PT LAYING IN BED WITH HOB ELEVATED. AAOX4. NO ACUTE SIGNS OF RESPIRATORY DISTRESS, NO SOB. SKIN COLOR NORMAL FOR ETHNICITY. PICC LINE INTACT, NO SIGNS OF REDNESS/SWELLING, FLUSHING WELL. HURTADO CATH INTACT AND DRAINING WELL TO GRAVITY. ROUTINE AND PAIN MEDS GIVE PER MD ORDERS. PT TOLERATED WELL. PROVIDED PERICARE AND LINEN CHANGED. PT TOLERATED WELL. REPOSITION. ALL NEEDS MET AT THIS TIME. CONTINUE TO MONITOR.
--- NOTE | 2016-08-25 14:37 | NUR ---
DC planning: S/w pt. at bedside, DCP interview completed. --new order for [facility] eval received and carried out. -- GERMANRN Addendum: 08/25/16 at 1636 by Malinda Hawkins DP Faxed DC Planning order to [facility] office [phone]. Notified [facility] Will follow up. Addendum: 08/26/16 at 0913 by Jerardo Rucker RN >> Late entry: @1600 s/w pt. regarding dcp to [facility], the pt. agreed with biju transfer preferring the facility that dr. Cony Card can follow her. Dilcia made aware.
[2016-08-25] MEDS: ONDANSETRON HCL 4 MG/2 ML VIAL IVP PRN (14:47)
--- NOTE | 2016-08-25 16:02 | NUR ---
ROUNDING: PT RESTING IN BED COMFORTABLY WITH HOB ELEVATED. NO SIGNS OF ACUTE RESPIRATORY DISTRESS, NO SOB. PT ON 2L O2 NC. PICC LINE INTACT WITH NO SIGNS OF ACTIVE BLEEDING. DENIES PAIN AT THIS TIME. SAFETY PRECAUTIONS IMPLEMENTED WITH BED AT LOWEST POSITION, CALL LIGHT WITHIN REACH, AND SIDE RAILS X3, RE-ENFORCED TEACHING TO CALL PRIOR TO GETTING UP FROM BED. CONTINUE TO MONITOR.
--- NOTE | 2016-08-25 18:26 | NUR ---
Page Dr. Jerez: Page Dr. Jerez to inform him of transfer and to obtain medication rec. Awaiting page back.
--- NOTE | 2016-08-25 19:03 | NUR ---
CLOSING NOTE: SPOKE WITH SISTER DANICA MCDUFFIE IN REGARDING PLAN TO DISCHARGE TO [facility]. SHE IS AGREEABLE WITH DISCHARGE. PT IS AGITATED REGARDING DISCHARGE AT THIS TIME. PT IS CURRENTLY SPEAKING WITH SISTER ON THE PHONE AT THIS TIME REGARDING DISCHARGE. WILL ENDORSE PLAN OF ANEESH CHAKRABORTY. HURTADO CATH INTACT AND DRAINING WELL TO GRAVITY. PICC INTACT TO TESSA. CALL LIGHT WITHIN REACH. NO ACUTE SIGNS OF RESPIRATORY DISTRESS, NO SOB. PT ON 2L O2 NC. BED AT LOWEST POSITION. WILL ENDORSE TO ANEESH CHAKRABORTY.
--- NOTE | 2016-08-25 19:45 | NUR ---
notes received the pt from the day nurse.report was called to stormy harris .pt will go to room 314b. pt will go by [facility] in 1 1/2 hour. pt states the discharge nurse did not tell her that she was going to [place] in [place].
--- NOTE | 2016-08-25 21:05 | NUR ---
notes dr du called and cancelled the discharge,oyselyn burrows was notified.
--- NOTE | 2016-08-25 21:11 | NUR ---
notes pt notified of not being transferred tonight.family also notified. picc line intact to lt upper arm o2 via nc at 2l/min.scd in place to lower extremities. will continue to monitor.
--- NOTE | 2016-08-25 21:30 | NUR ---
notes accucheck was 170,insulin given per s/s pt c/o back pain 01/13 RN was notified.
--- NOTE | 2016-08-25 23:23 | NUR ---
NOTES PT RESTING WITH EYES CLOSED,CALL LIGHT WITHIN REACH.CONTINUE TO MONITOR.
[2016-08-26 00:30] VITALS: BP_SYST 150
--- NOTE | 2016-08-26 01:42 | NUR ---
NOTES PT SLEEPING , NO DISTRESS NOTED.CALL LIGHT WITHIN REACH.CONTINUE TO MONITOR.
--- NOTE | 2016-08-26 03:30 | NUR ---
NOTES PT REMAINS ASLEEP,NO DISTRESS NOTED .CONTINUE TO MONITOR.
[2016-08-26] MEDS: ALBUTEROL SULFATE 0.083% 2.5 MG/3 ML VIAL.NEB INH SCH ×6 (03:58→22:22)
[2016-08-26] MEDS: IPRATROPIUM BROM 0.5 MG/2.5 ML VIAL.NEB (ATROVENT) INH SCH ×6 (03:59→22:22)
[2016-08-26 04:00] VITALS: BP_SYST 130
[2016-08-26] MEDS: PIPERACILLIN/TAZO 2.25G/DEX-IS 50 ML IV SCH ×3 (05:18→17:38)
--- NOTE | 2016-08-26 05:31 | NUR ---
NOTES PT SLEEPING,CALL LIGHT WITHIN REACH.CONTINUE TO MONITOR.
[2016-08-26] MEDS: NEOMYCIN SULFATE 500 MG TABLET PO SCH ×3 (05:55→17:43)
[2016-08-26] MEDS: LEVOTHYROXINE SODIUM 0.075 MG TABLET PO SCH (05:58)
[2016-08-26 06:06] LABS: FOLATE (FOLIC ACID) 4.9 ng/mL (>3.0)
--- NOTE | 2016-08-26 06:37 | NUR ---
CLOSING NOTES ACCUCHECK WAS 125,NO INSULIN NEEDED.WILL ENDORSE THE CARE OF THE PT TO THE DAY NURSE.
[2016-08-26 07:39] LABS: CALCIUM 7.9 mg/dL (8.4-11.0); CREATININE 1.86 mg/dL (0.55-1.30); POTASSIUM 4.2 mmol/L (3.5-5.1)
[2016-08-26 07:51] VITALS: BP_SYST 167
--- NOTE | 2016-08-26 08:00 | NUR ---
OPENING NOTES, PT IN BED, C/O OF PAIN ON ABD, 11/13, WILL MEDICATE, PT IS AA0X2 , NO SOB, NO DISTRESS. BED ALARM ON, CALL LIGHT IN REACH. BED I LOW POSITION, IV ACCESS INTACT AND IVFLUIDS INFUSING WELL, HURTADO INTACT WITH PINK COLORED URINE, HURTADO AT FOOT OF BED, SECUREMENT DEVICE APPLIED BY CURRICULUM DEVELOPMENT MANAGER. WILL CONT TO MONITOR.
[2016-08-26] MEDS: MORPHINE 4 MG/ML INJ. SYRINGE IVP PRN ×4 (08:10→21:07)
[2016-08-26] MEDS: LACTOBACILLUS RHAMNOSUS GG 1 CAP CAPSULE PO SCH ×2 (08:10→20:05)
[2016-08-26] MEDS: FUROSEMIDE 40 MG TABLET PO SCH (08:12)
[2016-08-26] MEDS: METOPROLOL SUCCINATE 25 MG TAB.SR.24H (TOPROL XL) PO SCH ×2 (08:12→20:06)
[2016-08-26] MEDS: hydrALAZINE HCL 25 MG TABLET PO SCH ×2 (08:13→20:06)
[2016-08-26] MEDS: GABAPENTIN 300 MG CAPSULE PO SCH ×3 (08:13→20:05)
[2016-08-26] MEDS: OFLOXACIN 0.3% OPHTHALMIC DROPS 5 ML OP SCH ×4 (08:19→21:00)
[2016-08-26] MEDS: TEARS ARTIFICIAL 15 ML DROPS OP SCH (08:19)
--- NOTE | 2016-08-26 09:48 | NUR ---
DISCHARGE PLANNING Spoke with [facility] patient assigned to room 314B RN to report [phone] bed available anytime. Per Dilcia discharge was held last night and requested follow up on ETA. RENETTA Kurtz made aware. Addendum: 08/26/16 at 1457 by Malinda Hawkins DP Salvador Kurtz pt agreeable with discharge plan to [facility] today. ANEESH Naranjo made aware. Called [facility] [phone] spoke with Salvador placed BLS transport on will call to [facility]. Transportation packet in nurses station pending time from nurse to arrange ambulance.
--- NOTE | 2016-08-26 10:00 | NUR ---
>> DC PLANNING: S/W pt.at bedside regarding her transfer holding last night . Pt. stated " she wanted to know about her prognosis and her condition before leaving here. She wanted to speak with the mdMaxine first." This cm reassured her that all of her questions will be answered before transfer. ANEESH Naranjo made aware and to notify dr. Jerez to speak with the pt. today. Addendum: 08/26/16 at 1526 by Jerardo Rucker RN >> @ 1400: Together with dr. Jerez , met with the pt. at bedside . The md. s/w pt. about her medical conditions and prognosis. All questions asked were answered by dr. Jerez. The pt. stated understanding and confirmed no additional questions. She aware that dr. Perez will follow her at [facility]. She agreed with the transfer today.
--- NOTE | 2016-08-26 10:03 | NUR ---
ROUNDING NOTES, PT IN BED, RESTING COMFORTABLY IN BED, NO SOB, NO DISTRESS, SAFETY PRECAUTION IN PLACE, WILL CONT TO MONITOR.
--- NOTE | 2016-08-26 12:00 | NUR ---
ROUNDING NOTES, PT IN BED, NO SOB, NO DISTRESS, SAFETY PRECAUTION IN PLACE, WILL CONT TO MONITOR
[2016-08-26] MEDS: INSULIN REGULAR, HUMAN 100 UNITS/ML, 10 ML VIAL (novoLIN R) SUBCUT PRN ×2 (12:09→18:11)
[2016-08-26 12:34] VITALS: BP_SYST 189
[2016-08-26] MEDS ORDERED: METOPROLOL SUCCINATE 50 MG TAB.SR.24H (TOPROL XL) PO ONE (14:00)
--- NOTE | 2016-08-26 14:00 | NUR ---
ROUNDING NOTES, PT IN BED, RESTING COMFORTABLY IN BED, NO SOB, NO DISTRESS, SAFETY PRECAUTION IN PLACE, WILL CONT TO MONITOR
[2016-08-26] MEDS: VANCOMYCIN HCL 1,000 MG in NS 250 ML IV SCH (15:22)
--- NOTE | 2016-08-26 16:00 | NUR ---
ROUNDING NOTES, PATIENT IN BED, NO SOB, NO DISTRESS. PAIN MEDICATIONS GIVEN REQUESTED. SAFETY PRECAUTION IN PLACE. WILL CONT TO MONITOR.
[2016-08-26] MEDS ORDERED: hydrALAZINE HCL 25 MG TABLET PO ONE (17:00)
[2016-08-26 18:00] VITALS: BP_SYST 170
--- NOTE | 2016-08-26 18:00 | NUR ---
ROUNDING NOTES, PT BEING DISCHARGE TO SNF. BP WAS 170/[address] PURCELL WAS CALLED AND MD SAID IT IS OK AND IT IS OK TO DC PATIENT. PT REMAINED AAO , PAIN MEDICATIONS REQUESTED AND GIVEN. ALL BP MEDICATIONS GIVEN FOR BP BUT BP WAS STILL HIGH. WILL DC PATIENT SOON AMBULANCE COME PER MD.
--- NOTE | 2016-08-26 18:54 | NUR ---
CLOSING NOTES, PT IN BED, NO C/O PAIN, PT WAITING TO BE DISCHARGE, WAITING FOR AMBULANCE. PT'S BE REMAINED HIGH AND CARDIO MD DR PURCELL IS AWARE AND SAID PT IS OK FOR DISCHARGE. WILL ENDORSE TO NIGHT RN. Addendum: 08/26/16 at 1857 by Jose A Cannon RN LINE 1: SHOULD READ. PT'S BP
--- NOTE | 2016-08-26 19:45 | NUR ---
PM SHIFT ASSESSMENT Received patient in bed, aox4, on 02 2l nc, no sob noted, denies any pain at this time. Left upper arm picc line intact and patent, saline lock. Patient has coyne catheter draining yellow urine and to gravity. POC discussed with patient, will be transferred to [facility] this evening. Will follow up with ambulance.
[2016-08-26 20:00] VITALS: BP_SYST 186
[2016-08-26] MEDS ORDERED: METOPROLOL SUCCINATE 50 MG TAB.SR.24H (TOPROL XL) PO SCH (21:00)
--- NOTE | 2016-08-26 21:00 | NUR ---
RN ROUNDS Patient awake, no sob noted, due medications administered, BP still elevated, patient asymptomatic. Call light within reach, will monitor.
[2016-08-26] MEDS: cloNIDine HCL 0.1 MG TABLET PO PRN (22:09)
--- NOTE | 2016-08-26 22:10 | NUR ---
PAGED PAGED TOMA MCCONNELL AT [phone] SPOKE WITH LUX.
[2016-08-26] MEDS ORDERED: cloNIDine HCL 0.1 MG TABLET ONE (22:14)
--- NOTE | 2016-08-26 22:48 | NUR ---
MD Patient's blood pressure still elevated, patient c/o left arm pain radiating to chest, Dr. Perez with new orders for ekg and change patient to telemetry. Discharge hold for now.
--- NOTE | 2016-08-26 23:00 | NUR ---
REPORT Spoke to ANEESH Olmos from [facility] and updated her that patient will not be transferred tonight.
[2016-08-27 00:13] VITALS: BP_SYST 126
[2016-08-27] MEDS: NEOMYCIN SULFATE 500 MG TABLET PO SCH ×3 (00:36→12:05)
[2016-08-27] MEDS: PIPERACILLIN/TAZO 2.25G/DEX-IS 50 ML IV SCH ×3 (00:36→12:04)
[2016-08-27] MEDS: MORPHINE 4 MG/ML INJ. SYRINGE IVP PRN ×3 (00:44→09:22)
--- NOTE | 2016-08-27 01:14 | NUR ---
RN ROUNDS Patient awake, no sob noted, remains on 02 2l nc, c/o severe pain, medicated with morphine for pain management, due medications administered, patient cleaned and repositioned with pillow support, vital signs stable. Call light within reach, will continue to monitor.
--- NOTE | 2016-08-27 02:26 | NUR ---
RN ROUNDS Patient resting quietly, no sob noted, remains on 02 2L NC. Safety measures in place, call light within reach, will continue to monitor.
[2016-08-27] MEDS: ALBUTEROL SULFATE 0.083% 2.5 MG/3 ML VIAL.NEB INH SCH ×3 (04:38→11:26)
[2016-08-27] MEDS: IPRATROPIUM BROM 0.5 MG/2.5 ML VIAL.NEB (ATROVENT) INH SCH ×3 (04:39→11:25)
--- NOTE | 2016-08-27 04:50 | NUR ---
RN ROUNDS Patient resting quietly, no sob noted, remains on 02 2L NC. Vital signs stable. Repositioned with pillow support. Safety measures in place, call light within reach, will continue to monitor.
--- NOTE | 2016-08-27 05:20 | NUR ---
RN ROUNDS Patient awake and was c/o severe pain, medicated with morphine for pain management, will reassess patient shortly. Due antibiotics administered, Call light remains within reach, will continue to monitor.
[2016-08-27] MEDS: LEVOTHYROXINE SODIUM 0.075 MG TABLET PO SCH (06:07)
--- NOTE | 2016-08-27 06:24 | NUR ---
CLOSING NOTE Patient awake, no sob noted, denies any pain at this time, due medications administered, blood sugar check 115 this am, patient repositioned with pillow support, patient needs attended to, call light remains within reach, will continue to monitor until report given to day nurse.
--- NOTE | 2016-08-27 07:30 | NUR ---
INITIAL NOTES RECEIVED PATIENT ON BED ASLEEP.BREATHING EVEN AND UNLABORED WITH ONGOING BREATHING TREATMENT.IV SALINE LOCK INTACT AND PATENT;NO SIGNS AND SYMPTOMS OF INFILTRATION.SAFETY AND FALL PRECAUTIONS IN PLACE.CALL LIGHT WITHIN REACH
[2016-08-27] MEDS: LACTOBACILLUS RHAMNOSUS GG 1 CAP CAPSULE PO SCH (08:37)
[2016-08-27] MEDS: FUROSEMIDE 40 MG TABLET PO SCH (08:39)
[2016-08-27] MEDS: hydrALAZINE HCL 25 MG TABLET PO SCH (08:41)
[2016-08-27] MEDS: METOPROLOL SUCCINATE 25 MG TAB.SR.24H (TOPROL XL) PO SCH (08:42)
[2016-08-27] MEDS: OFLOXACIN 0.3% OPHTHALMIC DROPS 5 ML OP SCH ×2 (08:42→12:06)
[2016-08-27] MEDS: TEARS ARTIFICIAL 15 ML DROPS OP SCH (08:43)
[2016-08-27] MEDS: GABAPENTIN 300 MG CAPSULE PO SCH (08:43)
[2016-08-27] MEDS ORDERED: METOPROLOL SUCCINATE 25 MG TAB.SR.24H (TOPROL XL) PO SCH (09:00)
--- NOTE | 2016-08-27 09:49 | NUR ---
DISCHARGE PLANNING Spoke with Biju Ha who will return call to confirm bed assignment. Called [facility] [phone] spoke with Salvador placed [facility] ([facility]) transport on will call to Biju Turner. Transportation packet in nurses station pending time from nurse to arrange ambulance. Addendum: 08/27/16 at 1059 by Malinad Hawkins DP Spoke with Dilcia confirmed room 314B ANEESH to report [phone] bed available anytime. ANEESH Diaz made aware. Called [facility] spoke with Salvador arranged transport forklift picker 12:30-1pm.
--- NOTE | 2016-08-27 10:14 | NUR ---
CHECKED PATIENT;NO DISTRESS;NEEDS ATTENDED TO
[2016-08-27 10:58] VITALS: BP_SYST 149
[2016-08-27] MEDS: INSULIN REGULAR, HUMAN 100 UNITS/ML, 10 ML VIAL (novoLIN R) SUBCUT PRN (12:00)
[2016-08-27] MEDS ORDERED: METOPROLOL SUCCINATE 50 MG TAB.SR.24H (TOPROL XL) PO ONE (12:00)
[2016-08-27 12:18] VITALS: BP_SYST 149
--- NOTE | 2016-08-27 12:38 | NUR ---
CALLED [facility];SPOKE WITH SREEDHAR(ANEESH);REPORT GIVEN
[2016-08-27] MEDS: cloNIDine HCL 0.1 MG TABLET PO PRN (13:18)
--- NOTE | 2016-08-27 13:20 | NUR ---
PT TRANSFERRED Report given to Maile at [facility]. Transfer packet with Transfer Orders and Medication Reconciliation form given to EMT with report. Exitcare provided. [facility] ID band removed, replaced with ID band with pt's name and . IV catheter removed, intact and dressing applied, no active bleeding. All belongings sent with patient. Patient left floor via gurney escorted by EMT in no distress.
== END 2016-08-27 13:20 | DRG 682 ==
LOC: SED 05:35 → SIC 08:44 → STU 08-23 16:31 → SMU 08-25 23:24 → STU 08-26 22:40
PROVIDERS: ADMIT Internal Medicine; ATTEND Internal Medicine Hospice and Palliative Medicine
PROC: 02HV33Z Insertion of Infusion Device into Superior Vena Cava, Percutaneous Approach (ICD-10-PCS; principal; 2016-08-22)
PROC: B548ZZA Ultrasonography of Superior Vena Cava, Guidance (ICD-10-PCS; 2016-08-22)
PROC: 5A09357 Assistance with Respiratory Ventilation, Less than 24 Consecutive Hours, Continuous Positive Airway Pressure (ICD-10-PCS; 2016-08-22)
DX: N17.9 Acute kidney failure, unspecified (principal); J18.9 Pneumonia, unspecified organism; J96.00 Acute respiratory failure, unspecified whether with hypoxia or hypercapnia; K76.7 Hepatorenal syndrome; I13.0 Hypertensive heart and chronic kidney disease with heart failure and stage 1 through stage 4 chronic kidney disease, or unspecified chronic kidney disease; E44.0 Moderate protein-calorie malnutrition; R18.8 Other ascites; D61.818 Other pancytopenia; D68.9 Coagulation defect, unspecified; E87.2 Acidosis; I50.40 Unspecified combined systolic (congestive) and diastolic (congestive) heart failure; K74.60 Unspecified cirrhosis of liver; E87.5 Hyperkalemia; B19.20 Unspecified viral hepatitis C without hepatic coma; E11.22 Type 2 diabetes mellitus with diabetic chronic kidney disease; E11.21 Type 2 diabetes mellitus with diabetic nephropathy; N18.3 Chronic kidney disease, stage 3 (moderate); K72.90 Hepatic failure, unspecified without coma; D63.8 Anemia in other chronic diseases classified elsewhere; Z87.891 Personal history of nicotine dependence; Q63.2 Ectopic kidney; Z79.899 Other long term (current) drug therapy; Z68.25 Body mass index [BMI] 25.0-25.9, adult
CPT/HCPCS: 36415; 36600; 71010; 74250-TC; 80048; 80053; 80307; 81000-TC; 82140-TC; 82607; 82746; 82803-TC; 82962; 83540-TC; 83550-TC; 83605; 83690-TC; 83735-TC; 83880; 84100-TC; 84132-TC; 84443-TC; 84484; 85025; 85610-TC; 85730-TC; 86738; 87040-TC; 87081; 87086; 87205-TC; 87230-TC; 93005; 93306; 94640; 94660; 94760; 96374; 96375; 99285; C1751; J0610; J0780; J1030; J1815; J1940; J1956; J2270; J2405; J2543; J2930; J3370; J7030; J7040; J7050; J7060; J7131; Q9963

== ENCOUNTER 2016-10-15 19:14 | Inpatient (IN) | payer OTHER, MEDICAID ==
[~2016-10-15] VITALS: Ht 149.9 cm; Wt 60.8 kg
[~2016-10-15 19:14] MED LIST changes: +ACET-1010 PO; +ACET-2165 PO; -ATEN50TA PO; +DULR10 RC; +FLOEARD OP; +HYDR100T25 PO; +LORA-258 PO; -LORA1TAB PO; +MAGN400O4 PO; +METO25TA3 PO; -METO25TA6 PO; +NA P118E RC; -NEOM500T PO; -NOR10 PO; -OMEP40CA33 PO; -ONDA4TAB5 PO; -SPIR25TA4 PO; +SPIR50TA26 PO; +TYC3 PO
[2016-10-15 19:46] VITALS: BP_SYST 197
[2016-10-15] MEDS ORDERED: DIPHENHYDRAMINE INJ 50 MG/ML VIAL IVP ONE ×2 (21:00→22:30)
[2016-10-15] MEDS ORDERED: HYDROmorphone 1 MG INJ. 1 MG/ML AMPUL IVP ONE ×2 (21:00→22:30)
[2016-10-15 21:36] LABS: BASOPHILS % (AUTO) 0.3 % (0.0-2.0); EOSINOPHILS # (AUTO) 0.1 K/uL (0.0-0.4); EOSINOPHILS % (AUTO) 1.5 % (0.0-4.0); HEMATOCRIT 25.6 % (36-48); HEMOGLOBIN 8.5 g/dL (12.0-16.0); LYMPHOCYTES # (AUTO) 0.7 K/uL (1.0-5.5); LYMPHOCYTES % (AUTO) 12.9 % (20.5-51.5); MEAN CORPUSCULAR HEMOGLOBIN 31 pg (27-31); MEAN CORPUSCULAR HGB CONC 33 % (32-36); MEAN CORPUSCULAR VOLUME 93 fL (79.0-98.0); MONOCYTES # (AUTO) 0.5 K/uL (0.0-1.0); NEUTROPHILS # (AUTO) 4.4 K/uL (1.8-7.7); NEUTROPHILS % (AUTO) 76.3 % (40.0-70.0); PLATELET COUNT (AUTO) 242 K/uL (130-430); RED BLOOD CELL COUNT(AUTO) 2.74 MIL/uL (4.2-6.2); RED CELL DISTRIBUTION WIDTH 15.3 % (9.0-15.0); WHITE BLOOD COUNT (AUTO) 5.7 K/uL (4.8-10.8)
[2016-10-15 21:46] LABS: CALCIUM 8.9 mg/dL (8.4-11.0); CREATININE 3.12 mg/dL (0.55-1.30); POTASSIUM 4.9 mmol/L (3.5-5.1)
[2016-10-15 21:50] LABS: ALBUMIN 3.2 g/dL (3.4-4.8); TOTAL BILIRUBIN 0.3 mg/dL (0.0-1.0); TOTAL PROTEIN, SERUM 7.7 g/dL (6.4-8.3)
[2016-10-16] VITALS (11 sets, daily range): BP systolic 112–209
[2016-10-16] MEDS ORDERED: LABETALOL 100 MG/ 20ML VIAL IVP ONE (00:30)
[2016-10-16 00:47] LABS: BILIRUBIN,URINE NEGATIVE (NEGATIVE); BLOOD, URINE 1+ (NEGATIVE); CLARITY/URINE SL CLOUDY (CLEAR); COLOR,URINE YELLOW (YELLOW); GLUCOSE,URINE 2+ (NEGATIVE); KETONES,URINE NEGATIVE (NEGATIVE); LEUKOCYTE ESTERASE ,URINE TRACE (NEGATIVE); NITRITE, URINE NEGATIVE (NEGATIVE); PROTEIN URINE 3+ (NEGATIVE); UROBILINOGEN,URINE 0.2 (0.2-1.0)
[2016-10-16 00:59] LABS: BACTERIA,URINE FEW /HPF (None Seen); RBC,URINE 0-3 /HPF (0-3); WBC,URINE 20-50 /HPF (0-3)
[2016-10-16 01:00] LABS: MUCUS,URINE None Seen /LPF (None Seen)
[2016-10-16 01:01] LABS: YEAST,URINE Moderate /HPF (None Seen)
[2016-10-16] MEDS ORDERED: POLY17PO4 PO (01:11)
[2016-10-16] MEDS ORDERED: INSU100V26 SUBCUT (01:14)
[2016-10-16] MEDS ORDERED: PIPE2.2512 IV (01:15)
[2016-10-16] MEDS ORDERED: LON10 PO (01:16)
[2016-10-16] MEDS ORDERED: INSU100V11 SQ (01:17)
[2016-10-16] MEDS ORDERED: CAT.1 PO ×2 (01:18→01:23)
[2016-10-16] MEDS ORDERED: SODI650T PO (01:18)
[2016-10-16] MEDS ORDERED: LACT-47 PO (01:20)
[2016-10-16] MEDS ORDERED: METO-442 PO (01:21)
[2016-10-16] MEDS ORDERED: NIFE60TA83 PO (01:22)
[2016-10-16] MEDS ORDERED: RIFA550T5 PO (01:24)
[2016-10-16] MEDS ORDERED: METO10TA3 IVP (01:25)
[2016-10-16] MEDS ORDERED: LEVO50TA77 PO (01:26)
[2016-10-16] MEDS ORDERED: PRO40 PO (01:27)
[2016-10-16] MEDS ORDERED: ZIN220 PO (01:28)
[2016-10-16] MEDS ORDERED: MULT PO (01:28)
[2016-10-16] MEDS ORDERED: ASCO500T20 PO (01:30)
[2016-10-16] MEDS ORDERED: FERR-57 PO (01:30)
[2016-10-16] MEDS ORDERED: ZOLP5TAB2 PO (01:31)
[2016-10-16] MEDS ORDERED: LACT1CAP61 PO (01:31)
[2016-10-16] MEDS ORDERED: MAGN400O4 PO (01:32)
[2016-10-16] MEDS ORDERED: LORA1TAB PO (01:32)
[2016-10-16] MEDS ORDERED: DULR10 RC (01:33)
[2016-10-16] MEDS ORDERED: ACET-2165 PO (01:34)
[2016-10-16] MEDS ORDERED: DEXT50DI5 IV (01:36)
[2016-10-16] MEDS ORDERED: SSNOVOLOG SUBCUT (01:37)
[2016-10-16] MEDS ORDERED: IPRA3AMP9 INH (01:41)
[2016-10-16] MEDS ORDERED: BALS60OI TP (01:42)
[2016-10-16] MEDS ORDERED: LORazepam 1 MG TABLET PO PRN (02:30)
[2016-10-16] MEDS ORDERED: cloNIDine HCL 0.1 MG TABLET PO PRN (02:30)
[2016-10-16] MEDS ORDERED: BISACODYL 10 MG/SUPPOSITORY RC PRN (02:30)
[2016-10-16] MEDS ORDERED: INSULIN ASPART 100 UNITS/ML, 10 ML VIAL (NovoLOG) SUBCUT PRN (02:30)
[2016-10-16] MEDS ORDERED: IPRATROPIUM/ALBUTEROL SULFATE 3 ML AMPUL.NEB INH PRN (02:30)
[2016-10-16] MEDS ORDERED: ACETAMINOPHEN 325 MG TABLET PO PRN (02:30)
[2016-10-16] MEDS ORDERED: ZOLPIDEM TARTRATE 5 MG TABLET PO PRN (02:30)
[2016-10-16] MEDS ORDERED: MILK OF MAGNESIA 30 ML UDC PO PRN (02:30)
[2016-10-16] MEDS: HYDROmorphone 1 MG INJ. 1 MG/ML AMPUL IVP PRN ×5 (04:00→23:38)
[2016-10-16] MEDS ORDERED: PIPERACILLIN/TAZOBACTAM 2.25 GM VIAL IV SCH (06:00)
[2016-10-16] MEDS: SODIUM BICARBONATE 650 MG TABLET PO SCH ×3 (06:09→22:35)
[2016-10-16] MEDS: INSULIN ASPART 100 UNITS/ML, 10 ML VIAL SUBCUT SCH ×2 (06:09→16:43)
[2016-10-16] MEDS: LEVOTHYROXINE SODIUM 0.05 MG TABLET PO SCH (06:09)
[2016-10-16] MEDS: METOCLOPRAMIDE HCL 10 MG TABLET PO SCH ×3 (06:10→18:03)
[2016-10-16] MEDS: cloNIDine HCL 0.1 MG TABLET PO SCH ×3 (06:11→22:38)
[2016-10-16] MEDS ORDERED: PIPERACILLIN/TAZOBACTAM 2.25 GM VIAL IV ONE (06:12)
[2016-10-16] MEDS: cefTRIAXone 1 GM in D5W 50 ML IV SCH (08:16)
[2016-10-16] MEDS: FUROSEMIDE 40 MG/4 ML VIAL IVP SCH (08:17)
[2016-10-16] MEDS: FERROUS SULFATE 325 MG TABLET.DR PO SCH ×2 (08:18→22:36)
[2016-10-16] MEDS: RIFAXIMIN 550 MG TABLET PO SCH ×2 (08:18→22:36)
[2016-10-16] MEDS: ASPIRIN 81 MG TAB.CHEW PO SCH (08:18)
[2016-10-16] MEDS: MULTIVITAMINS TAB 1 TABLET PO SCH (08:18)
[2016-10-16] MEDS: ASCORBIC ACID 500 MG TABLET PO SCH (08:18)
[2016-10-16] MEDS: POLYETHYLENE GLYCOL 3350, 17 GM/ POWD.PACK PO SCH (08:19)
[2016-10-16] MEDS: METOPROLOL TARTRATE 50 MG TABLET PO SCH ×2 (08:19→22:37)
[2016-10-16] MEDS: PANTOPRAZOLE SODIUM 40 MG TAB PO SCH ×2 (08:19→22:36)
[2016-10-16] MEDS: BALSAM PERU/CASTOR OIL 60 GM OINT...G. TP SCH (08:30)
[2016-10-16] MEDS: NIFEDIPINE 60 MG TABLET.SA (PROCARDIA XL 60 MG) PO SCH ×2 (09:00→22:35)
[2016-10-16] MEDS: MINOXIDIL 10 MG TABLET (LONITEN) PO SCH ×2 (09:31→22:36)
[2016-10-16] MEDS: PIPERACILLIN/TAZOBACTAM 2.25 GM/ D5W 50 ML IV SCH ×4 (13:51→22:51)
[2016-10-16] MEDS: DEXTROSE 50% JECT 50 ML DISP.SYRIN IV PRN (14:19)
[2016-10-17] MEDS: METOCLOPRAMIDE HCL 10 MG TABLET PO SCH ×4 (01:01→17:28)
[2016-10-17] MEDS: HYDROmorphone 1 MG INJ. 1 MG/ML AMPUL IVP PRN ×5 (03:38→21:42)
[2016-10-17 05:58] VITALS: BP_SYST 171
[2016-10-17] MEDS: PIPERACILLIN/TAZOBACTAM 2.25 GM/ D5W 50 ML IV SCH ×2 (06:24)
[2016-10-17] MEDS: LEVOTHYROXINE SODIUM 0.05 MG TABLET PO SCH (06:25)
[2016-10-17] MEDS: SODIUM BICARBONATE 650 MG TABLET PO SCH ×3 (06:25→20:43)
[2016-10-17] MEDS: cloNIDine HCL 0.1 MG TABLET PO SCH ×3 (06:25→20:42)
[2016-10-17] MEDS: INSULIN ASPART 100 UNITS/ML, 10 ML VIAL SUBCUT SCH ×2 (06:48→16:30)
[2016-10-17 06:53] LABS: BASOPHILS % (AUTO) 0.5 % (0.0-2.0); EOSINOPHILS # (AUTO) 0.3 K/uL (0.0-0.4); EOSINOPHILS % (AUTO) 3.9 % (0.0-4.0); HEMATOCRIT 25.2 % (36-48); HEMOGLOBIN 8.4 g/dL (12.0-16.0); LYMPHOCYTES # (AUTO) 0.9 K/uL (1.0-5.5); LYMPHOCYTES % (AUTO) 12.9 % (20.5-51.5); MEAN CORPUSCULAR HEMOGLOBIN 31 pg (27-31); MEAN CORPUSCULAR HGB CONC 33 % (32-36); MEAN CORPUSCULAR VOLUME 94 fL (79.0-98.0); MONOCYTES # (AUTO) 0.4 K/uL (0.0-1.0); MONOCYTES % (AUTO) 6.4 % (1.7-9.3); NEUTROPHILS # (AUTO) 5.3 K/uL (1.8-7.7); NEUTROPHILS % (AUTO) 76.3 % (40.0-70.0); PLATELET COUNT (AUTO) 257 K/uL (130-430); RED CELL DISTRIBUTION WIDTH 15.8 % (9.0-15.0); WHITE BLOOD COUNT (AUTO) 6.9 K/uL (4.8-10.8)
[2016-10-17 07:01] LABS: INR 1.1 (0.8-1.2); PROTHROMBIN TIME 11.6 SECS (9.5-12.5)
[2016-10-17 07:34] LABS: ALBUMIN 2.6 g/dL (3.4-4.8); CALCIUM 8.5 mg/dL (8.4-11.0); CREATININE 2.78 mg/dL (0.55-1.30); POTASSIUM 5.2 mmol/L (3.5-5.1); THYROID STIMULATING HORMONE 9.57 uIu/mL (0.34-4.82); TOTAL BILIRUBIN 0.3 mg/dL (0.0-1.0); TOTAL PROTEIN, SERUM 6.7 g/dL (6.4-8.3)
[2016-10-17 08:00] VITALS: BP_SYST 161
[2016-10-17] MEDS: FUROSEMIDE 40 MG/4 ML VIAL IVP SCH (09:07)
[2016-10-17] MEDS: PANTOPRAZOLE SODIUM 40 MG TAB PO SCH ×2 (09:08→20:43)
[2016-10-17] MEDS: RIFAXIMIN 550 MG TABLET PO SCH ×2 (09:08→20:43)
[2016-10-17] MEDS: MINOXIDIL 10 MG TABLET (LONITEN) PO SCH ×2 (09:08→20:43)
[2016-10-17] MEDS: FERROUS SULFATE 325 MG TABLET.DR PO SCH ×2 (09:08→20:43)
[2016-10-17] MEDS: METOPROLOL TARTRATE 50 MG TABLET PO SCH ×2 (09:09→20:43)
[2016-10-17] MEDS: POLYETHYLENE GLYCOL 3350, 17 GM/ POWD.PACK PO SCH (09:09)
[2016-10-17] MEDS: NIFEDIPINE 60 MG TABLET.SA (PROCARDIA XL 60 MG) PO SCH ×2 (09:09→20:43)
[2016-10-17] MEDS: ASPIRIN 81 MG TAB.CHEW PO SCH (09:09)
[2016-10-17] MEDS: ASCORBIC ACID 500 MG TABLET PO SCH (09:09)
[2016-10-17] MEDS: MULTIVITAMINS TAB 1 TABLET PO SCH (09:09)
[2016-10-17] MEDS: cefTRIAXone 1 GM in D5W 50 ML IV SCH (09:53)
[2016-10-17] MEDS: BALSAM PERU/CASTOR OIL 60 GM OINT...G. TP SCH (09:53)
[2016-10-17 12:01] VITALS: BP_SYST 177
[2016-10-17] MEDS: INSULIN ASPART 100 UNITS/ML, 10 ML VIAL (NovoLOG) SUBCUT PRN (12:21)
[2016-10-17] MEDS: DEXTROSE 50% JECT 50 ML DISP.SYRIN IV PRN (15:53)
[2016-10-17 16:02] VITALS: BP_SYST 190
[2016-10-17 19:35] VITALS: BP_SYST 134
[2016-10-18 02:56] VITALS: BP_SYST 136
[2016-10-18] MEDS: HYDROmorphone 1 MG INJ. 1 MG/ML AMPUL IVP PRN ×5 (03:02→21:33)
[2016-10-18] MEDS: SODIUM BICARBONATE 650 MG TABLET PO SCH ×3 (06:17→21:31)
[2016-10-18] MEDS: LEVOTHYROXINE SODIUM 0.05 MG TABLET PO SCH (06:17)
[2016-10-18] MEDS: METOCLOPRAMIDE HCL 10 MG TABLET PO SCH ×4 (06:17→17:13)
[2016-10-18] MEDS: cloNIDine HCL 0.1 MG TABLET PO SCH ×3 (06:18→21:31)
[2016-10-18] MEDS: INSULIN ASPART 100 UNITS/ML, 10 ML VIAL SUBCUT SCH ×2 (06:19→17:00)
[2016-10-18 07:04] LABS: BASOPHILS % (AUTO) 0.5 % (0.0-2.0); EOSINOPHILS # (AUTO) 0.2 K/uL (0.0-0.4); EOSINOPHILS % (AUTO) 3.2 % (0.0-4.0); HEMATOCRIT 26.2 % (36-48); HEMOGLOBIN 8.7 g/dL (12.0-16.0); LYMPHOCYTES # (AUTO) 0.9 K/uL (1.0-5.5); LYMPHOCYTES % (AUTO) 16.1 % (20.5-51.5); MEAN CORPUSCULAR HEMOGLOBIN 31 pg (27-31); MEAN CORPUSCULAR HGB CONC 33 % (32-36); MEAN CORPUSCULAR VOLUME 94 fL (79.0-98.0); MONOCYTES # (AUTO) 0.4 K/uL (0.0-1.0); MONOCYTES % (AUTO) 7.6 % (1.7-9.3); NEUTROPHILS # (AUTO) 3.9 K/uL (1.8-7.7); NEUTROPHILS % (AUTO) 72.6 % (40.0-70.0); PLATELET COUNT (AUTO) 251 K/uL (130-430); RED BLOOD CELL COUNT(AUTO) 2.78 MIL/uL (4.2-6.2); RED CELL DISTRIBUTION WIDTH 16.4 % (9.0-15.0); WHITE BLOOD COUNT (AUTO) 5.4 K/uL (4.8-10.8)
[2016-10-18 07:09] LABS: ALBUMIN 2.6 g/dL (3.4-4.8); CALCIUM 8.6 mg/dL (8.4-11.0); CREATININE 2.31 mg/dL (0.55-1.30); POTASSIUM 4.6 mmol/L (3.5-5.1); TOTAL BILIRUBIN 0.3 mg/dL (0.0-1.0); TOTAL PROTEIN, SERUM 6.8 g/dL (6.4-8.3)
[2016-10-18 09:20] VITALS: BP_SYST 129
[2016-10-18] MEDS: PANTOPRAZOLE SODIUM 40 MG TAB PO SCH ×2 (09:22→21:31)
[2016-10-18] MEDS: ASPIRIN 81 MG TAB.CHEW PO SCH (09:24)
[2016-10-18] MEDS: FUROSEMIDE 40 MG/4 ML VIAL IVP SCH (09:24)
[2016-10-18] MEDS: ASCORBIC ACID 500 MG TABLET PO SCH (09:24)
[2016-10-18] MEDS: RIFAXIMIN 550 MG TABLET PO SCH ×2 (09:25→21:31)
[2016-10-18] MEDS: MINOXIDIL 10 MG TABLET (LONITEN) PO SCH ×2 (09:25→21:32)
[2016-10-18] MEDS: MULTIVITAMINS TAB 1 TABLET PO SCH (09:26)
[2016-10-18] MEDS: NIFEDIPINE 60 MG TABLET.SA (PROCARDIA XL 60 MG) PO SCH ×2 (09:26→21:32)
[2016-10-18] MEDS: FERROUS SULFATE 325 MG TABLET.DR PO SCH ×2 (09:26→21:31)
[2016-10-18] MEDS: POLYETHYLENE GLYCOL 3350, 17 GM/ POWD.PACK PO SCH (09:38)
[2016-10-18] MEDS: METOPROLOL TARTRATE 50 MG TABLET PO SCH ×2 (09:38→21:31)
[2016-10-18] MEDS: cefTRIAXone 1 GM in D5W 50 ML IV SCH (09:43)
[2016-10-18] MEDS ORDERED: FUROSEMIDE 20 MG/2 ML VIAL IVP ONE (09:45)
[2016-10-18] MEDS: BALSAM PERU/CASTOR OIL 60 GM OINT...G. TP SCH (10:53)
[2016-10-18] MEDS: INSULIN ASPART 100 UNITS/ML, 10 ML VIAL (NovoLOG) SUBCUT PRN (11:30)
[2016-10-18 12:36] VITALS: BP_SYST 138
[2016-10-18 16:39] VITALS: BP_SYST 156
[2016-10-18] MEDS: DEXTROSE 50% JECT 50 ML DISP.SYRIN IV PRN (17:12)
[2016-10-18 20:00] VITALS: BP_SYST 151
[2016-10-19] VITALS (8 sets, daily range): BP systolic 127–154
[2016-10-19] MEDS: METOCLOPRAMIDE HCL 10 MG TABLET PO SCH ×5 (00:02→23:32)
[2016-10-19] MEDS: HYDROmorphone 1 MG INJ. 1 MG/ML AMPUL IVP PRN ×6 (01:35→23:32)
[2016-10-19] MEDS: cloNIDine HCL 0.1 MG TABLET PO SCH ×3 (05:38→22:00)
[2016-10-19] MEDS: SODIUM BICARBONATE 650 MG TABLET PO SCH ×3 (05:38→21:59)
[2016-10-19] MEDS: LEVOTHYROXINE SODIUM 0.05 MG TABLET PO SCH (06:33)
[2016-10-19] MEDS: INSULIN ASPART 100 UNITS/ML, 10 ML VIAL (NovoLOG) SUBCUT PRN ×2 (06:36→11:42)
[2016-10-19 07:38] LABS: BASOPHILS % (AUTO) 0.2 % (0.0-2.0); EOSINOPHILS # (AUTO) 0.1 K/uL (0.0-0.4); EOSINOPHILS % (AUTO) 2.2 % (0.0-4.0); HEMATOCRIT 26.5 % (36-48); HEMOGLOBIN 8.8 g/dL (12.0-16.0); LYMPHOCYTES # (AUTO) 0.9 K/uL (1.0-5.5); MEAN CORPUSCULAR HEMOGLOBIN 31 pg (27-31); MEAN CORPUSCULAR HGB CONC 33 % (32-36); MEAN CORPUSCULAR VOLUME 94 fL (79.0-98.0); MONOCYTES # (AUTO) 0.4 K/uL (0.0-1.0); MONOCYTES % (AUTO) 7.3 % (1.7-9.3); NEUTROPHILS # (AUTO) 3.6 K/uL (1.8-7.7); NEUTROPHILS % (AUTO) 73.3 % (40.0-70.0); PLATELET COUNT (AUTO) 278 K/uL (130-430); RED BLOOD CELL COUNT(AUTO) 2.83 MIL/uL (4.2-6.2); RED CELL DISTRIBUTION WIDTH 16.1 % (9.0-15.0)
[2016-10-19 07:42] LABS: ALBUMIN 2.5 g/dL (3.4-4.8); CALCIUM 8.4 mg/dL (8.4-11.0); CREATININE 2.17 mg/dL (0.55-1.30); POTASSIUM 4.5 mmol/L (3.5-5.1); TOTAL BILIRUBIN 0.3 mg/dL (0.0-1.0); TOTAL PROTEIN, SERUM 6.6 g/dL (6.4-8.3)
[2016-10-19] MEDS: ASPIRIN 81 MG TAB.CHEW PO SCH (08:51)
[2016-10-19] MEDS: RIFAXIMIN 550 MG TABLET PO SCH ×2 (08:52→22:00)
[2016-10-19] MEDS: MINOXIDIL 10 MG TABLET (LONITEN) PO SCH ×2 (08:54→21:59)
[2016-10-19] MEDS: MULTIVITAMINS TAB 1 TABLET PO SCH (08:54)
[2016-10-19] MEDS: ASCORBIC ACID 500 MG TABLET PO SCH (08:55)
[2016-10-19] MEDS: METOPROLOL TARTRATE 50 MG TABLET PO SCH ×2 (08:55→22:01)
[2016-10-19] MEDS: NIFEDIPINE 60 MG TABLET.SA (PROCARDIA XL 60 MG) PO SCH ×2 (08:56→22:00)
[2016-10-19] MEDS: FERROUS SULFATE 325 MG TABLET.DR PO SCH ×2 (08:56→22:00)
[2016-10-19] MEDS: PANTOPRAZOLE SODIUM 40 MG TAB PO SCH ×2 (08:56→21:59)
[2016-10-19] MEDS: BALSAM PERU/CASTOR OIL 60 GM OINT...G. TP SCH (08:58)
[2016-10-19] MEDS: POLYETHYLENE GLYCOL 3350, 17 GM/ POWD.PACK PO SCH (09:00)
[2016-10-19] MEDS: cefTRIAXone 1 GM in D5W 50 ML IV SCH (09:00)
[2016-10-19] MEDS: FUROSEMIDE 40 MG/4 ML VIAL IVP SCH (09:00)
[2016-10-19] MEDS: DEXTROSE 50% JECT 50 ML DISP.SYRIN IV PRN (17:37)
[2016-10-20] MEDS: HYDROmorphone 1 MG INJ. 1 MG/ML AMPUL IVP PRN ×5 (03:37→20:58)
[2016-10-20 04:04] VITALS: BP_SYST 158
[2016-10-20] MEDS: SODIUM BICARBONATE 650 MG TABLET PO SCH ×3 (06:00→22:00)
[2016-10-20] MEDS: cloNIDine HCL 0.1 MG TABLET PO SCH ×3 (06:01→22:00)
[2016-10-20] MEDS: METOCLOPRAMIDE HCL 10 MG TABLET PO SCH ×3 (06:01→17:39)
[2016-10-20] MEDS: LEVOTHYROXINE SODIUM 0.05 MG TABLET PO SCH (06:49)
[2016-10-20] MEDS: INSULIN ASPART 100 UNITS/ML, 10 ML VIAL (NovoLOG) SUBCUT PRN ×4 (06:55→21:06)
[2016-10-20 08:00] VITALS: BP_SYST 152
[2016-10-20 08:06] LABS: BASOPHILS % (AUTO) 0.4 % (0.0-2.0); EOSINOPHILS # (AUTO) 0.2 K/uL (0.0-0.4); EOSINOPHILS % (AUTO) 4.4 % (0.0-4.0); HEMATOCRIT 24.7 % (36-48); HEMOGLOBIN 8.3 g/dL (12.0-16.0); LYMPHOCYTES # (AUTO) 0.8 K/uL (1.0-5.5); LYMPHOCYTES % (AUTO) 20.9 % (20.5-51.5); MEAN CORPUSCULAR HEMOGLOBIN 31 pg (27-31); MEAN CORPUSCULAR HGB CONC 34 % (32-36); MEAN CORPUSCULAR VOLUME 93 fL (79.0-98.0); MONOCYTES # (AUTO) 0.4 K/uL (0.0-1.0); MONOCYTES % (AUTO) 10.1 % (1.7-9.3); NEUTROPHILS # (AUTO) 2.6 K/uL (1.8-7.7); NEUTROPHILS % (AUTO) 64.2 % (40.0-70.0); PLATELET COUNT (AUTO) 271 K/uL (130-430); RED BLOOD CELL COUNT(AUTO) 2.66 MIL/uL (4.2-6.2); RED CELL DISTRIBUTION WIDTH 16.5 % (9.0-15.0)
[2016-10-20 08:21] LABS: ALBUMIN 2.4 g/dL (3.4-4.8); CALCIUM 8.1 mg/dL (8.4-11.0); CREATININE 2.05 mg/dL (0.55-1.30); POTASSIUM 4.2 mmol/L (3.5-5.1); TOTAL BILIRUBIN 0.2 mg/dL (0.0-1.0); TOTAL PROTEIN, SERUM 6.1 g/dL (6.4-8.3)
[2016-10-20] MEDS: cefTRIAXone 1 GM in D5W 50 ML IV SCH (09:57)
[2016-10-20] MEDS: PANTOPRAZOLE SODIUM 40 MG TAB PO SCH ×2 (09:57→21:00)
[2016-10-20] MEDS: MINOXIDIL 10 MG TABLET (LONITEN) PO SCH ×2 (09:58→21:00)
[2016-10-20] MEDS: METOPROLOL TARTRATE 50 MG TABLET PO SCH ×2 (09:58→21:00)
[2016-10-20] MEDS: ASCORBIC ACID 500 MG TABLET PO SCH (09:58)
[2016-10-20] MEDS: RIFAXIMIN 550 MG TABLET PO SCH ×2 (09:58→21:00)
[2016-10-20] MEDS: ASPIRIN 81 MG TAB.CHEW PO SCH (09:58)
[2016-10-20] MEDS: NIFEDIPINE 60 MG TABLET.SA (PROCARDIA XL 60 MG) PO SCH ×2 (09:59→20:59)
[2016-10-20] MEDS: FERROUS SULFATE 325 MG TABLET.DR PO SCH ×2 (09:59→21:00)
[2016-10-20] MEDS: FUROSEMIDE 40 MG/4 ML VIAL IVP SCH (09:59)
[2016-10-20] MEDS: MULTIVITAMINS TAB 1 TABLET PO SCH (09:59)
[2016-10-20] MEDS: POLYETHYLENE GLYCOL 3350, 17 GM/ POWD.PACK PO SCH (10:00)
[2016-10-20] MEDS: BALSAM PERU/CASTOR OIL 60 GM OINT...G. TP SCH (10:01)
[2016-10-20 12:16] VITALS: BP_SYST 153
[2016-10-20 16:00] VITALS: BP_SYST 151
[2016-10-20 20:15] VITALS: BP_SYST 143
[2016-10-21] MEDS: METOCLOPRAMIDE HCL 10 MG TABLET PO SCH ×4 (01:19→18:51)
[2016-10-21] MEDS: HYDROmorphone 1 MG INJ. 1 MG/ML AMPUL IVP PRN ×6 (01:20→22:20)
[2016-10-21] MEDS: cloNIDine HCL 0.1 MG TABLET PO SCH ×3 (05:47→22:27)
[2016-10-21] MEDS: SODIUM BICARBONATE 650 MG TABLET PO SCH ×3 (05:47→22:21)
[2016-10-21] MEDS: LEVOTHYROXINE SODIUM 0.05 MG TABLET PO SCH (05:48)
[2016-10-21] MEDS: INSULIN ASPART 100 UNITS/ML, 10 ML VIAL (NovoLOG) SUBCUT PRN ×3 (05:53→22:18)
[2016-10-21 08:00] VITALS: BP_SYST 150
[2016-10-21] MEDS: cefTRIAXone 1 GM in D5W 50 ML IV SCH (09:23)
[2016-10-21] MEDS: FUROSEMIDE 40 MG/4 ML VIAL IVP SCH (09:23)
[2016-10-21] MEDS: MULTIVITAMINS TAB 1 TABLET PO SCH (10:14)
[2016-10-21] MEDS: NIFEDIPINE 60 MG TABLET.SA (PROCARDIA XL 60 MG) PO SCH ×2 (10:14→22:28)
[2016-10-21] MEDS: PANTOPRAZOLE SODIUM 40 MG TAB PO SCH ×2 (10:14→22:21)
[2016-10-21] MEDS: RIFAXIMIN 550 MG TABLET PO SCH ×2 (10:15→22:28)
[2016-10-21] MEDS: METOPROLOL TARTRATE 50 MG TABLET PO SCH ×2 (10:15→22:28)
[2016-10-21] MEDS: FERROUS SULFATE 325 MG TABLET.DR PO SCH ×2 (10:15→22:28)
[2016-10-21] MEDS: ASCORBIC ACID 500 MG TABLET PO SCH (10:16)
[2016-10-21] MEDS: POLYETHYLENE GLYCOL 3350, 17 GM/ POWD.PACK PO SCH (10:17)
[2016-10-21] MEDS: MINOXIDIL 10 MG TABLET (LONITEN) PO SCH ×2 (10:17→22:27)
[2016-10-21] MEDS: ASPIRIN 81 MG TAB.CHEW PO SCH (10:18)
[2016-10-21] MEDS: BALSAM PERU/CASTOR OIL 60 GM OINT...G. TP SCH (11:17)
[2016-10-21 11:36] VITALS: BP_SYST 132
[2016-10-21] MEDS ORDERED: LIDOCAINE 1%, 20 ML MDV 20 ML ONE (13:18)
[2016-10-21 16:53] VITALS: BP_SYST 129
[2016-10-21 19:30] VITALS: BP_SYST 147
[2016-10-22] VITALS (7 sets, daily range): BP systolic 121–148
[2016-10-22] MEDS: HYDROmorphone 1 MG INJ. 1 MG/ML AMPUL IVP PRN ×6 (02:41→23:08)
[2016-10-22] MEDS: cloNIDine HCL 0.1 MG TABLET PO SCH ×3 (05:56→21:33)
[2016-10-22] MEDS: METOCLOPRAMIDE HCL 10 MG TABLET PO SCH ×5 (05:56→23:03)
[2016-10-22] MEDS: LEVOTHYROXINE SODIUM 0.05 MG TABLET PO SCH (05:57)
[2016-10-22] MEDS: SODIUM BICARBONATE 650 MG TABLET PO SCH ×3 (05:57→21:32)
[2016-10-22] MEDS: INSULIN ASPART 100 UNITS/ML, 10 ML VIAL (NovoLOG) SUBCUT PRN ×3 (06:46→18:54)
[2016-10-22] MEDS: MULTIVITAMINS TAB 1 TABLET PO SCH (09:07)
[2016-10-22] MEDS: FERROUS SULFATE 325 MG TABLET.DR PO SCH ×2 (09:07→20:46)
[2016-10-22] MEDS: ASPIRIN 81 MG TAB.CHEW PO SCH (09:07)
[2016-10-22] MEDS: cefTRIAXone 1 GM in D5W 50 ML IV SCH (09:07)
[2016-10-22] MEDS: RIFAXIMIN 550 MG TABLET PO SCH ×2 (09:08→20:44)
[2016-10-22] MEDS: PANTOPRAZOLE SODIUM 40 MG TAB PO SCH ×2 (09:08→20:44)
[2016-10-22] MEDS: POLYETHYLENE GLYCOL 3350, 17 GM/ POWD.PACK PO SCH (09:09)
[2016-10-22] MEDS: METOPROLOL TARTRATE 50 MG TABLET PO SCH ×2 (09:09→20:46)
[2016-10-22] MEDS: FUROSEMIDE 40 MG/4 ML VIAL IVP SCH (09:09)
[2016-10-22] MEDS: ASCORBIC ACID 500 MG TABLET PO SCH (09:09)
[2016-10-22] MEDS: MINOXIDIL 10 MG TABLET (LONITEN) PO SCH ×2 (09:11→20:45)
[2016-10-22] MEDS: NIFEDIPINE 60 MG TABLET.SA (PROCARDIA XL 60 MG) PO SCH ×2 (09:13→20:46)
[2016-10-22] MEDS: BALSAM PERU/CASTOR OIL 60 GM OINT...G. TP SCH (09:15)
[2016-10-23] MEDS: HYDROmorphone 1 MG INJ. 1 MG/ML AMPUL IVP PRN ×6 (03:16→23:50)
[2016-10-23 04:00] VITALS: BP_SYST 131
[2016-10-23] MEDS: LEVOTHYROXINE SODIUM 0.05 MG TABLET PO SCH (06:30)
[2016-10-23] MEDS: METOCLOPRAMIDE HCL 10 MG TABLET PO SCH ×3 (06:31→17:37)
[2016-10-23] MEDS: SODIUM BICARBONATE 650 MG TABLET PO SCH ×3 (06:31→22:37)
[2016-10-23] MEDS: cloNIDine HCL 0.1 MG TABLET PO SCH ×3 (06:32→22:40)
[2016-10-23] MEDS: INSULIN ASPART 100 UNITS/ML, 10 ML VIAL (NovoLOG) SUBCUT PRN ×3 (07:02→17:35)
[2016-10-23 07:08] LABS: BASOPHILS % (AUTO) 0.2 % (0.0-2.0); EOSINOPHILS # (AUTO) 0.1 K/uL (0.0-0.4); EOSINOPHILS % (AUTO) 2.7 % (0.0-4.0); HEMATOCRIT 24.1 % (36-48); LYMPHOCYTES # (AUTO) 0.9 K/uL (1.0-5.5); LYMPHOCYTES % (AUTO) 18.3 % (20.5-51.5); MEAN CORPUSCULAR HEMOGLOBIN 31 pg (27-31); MEAN CORPUSCULAR HGB CONC 33 % (32-36); MEAN CORPUSCULAR VOLUME 94 fL (79.0-98.0); MONOCYTES # (AUTO) 0.6 K/uL (0.0-1.0); MONOCYTES % (AUTO) 11.2 % (1.7-9.3); NEUTROPHILS # (AUTO) 3.6 K/uL (1.8-7.7); NEUTROPHILS % (AUTO) 67.6 % (40.0-70.0); PLATELET COUNT (AUTO) 213 K/uL (130-430); RED BLOOD CELL COUNT(AUTO) 2.56 MIL/uL (4.2-6.2); RED CELL DISTRIBUTION WIDTH 16.5 % (9.0-15.0); WHITE BLOOD COUNT (AUTO) 5.2 K/uL (4.8-10.8)
[2016-10-23 07:35] LABS: ALBUMIN 2.6 g/dL (3.4-4.8); CALCIUM 8.5 mg/dL (8.4-11.0); CREATININE 1.91 mg/dL (0.55-1.30); POTASSIUM 4.6 mmol/L (3.5-5.1); TOTAL BILIRUBIN 0.3 mg/dL (0.0-1.0); TOTAL PROTEIN, SERUM 6.5 g/dL (6.4-8.3)
[2016-10-23 08:00] VITALS: BP_SYST 112
[2016-10-23] MEDS: FERROUS SULFATE 325 MG TABLET.DR PO SCH ×2 (09:44→22:42)
[2016-10-23] MEDS: MINOXIDIL 10 MG TABLET (LONITEN) PO SCH ×2 (09:45→22:41)
[2016-10-23] MEDS: MULTIVITAMINS TAB 1 TABLET PO SCH (09:45)
[2016-10-23] MEDS: ASCORBIC ACID 500 MG TABLET PO SCH (09:46)
[2016-10-23] MEDS: ASPIRIN 81 MG TAB.CHEW PO SCH (09:46)
[2016-10-23] MEDS: PANTOPRAZOLE SODIUM 40 MG TAB PO SCH ×2 (09:46→22:40)
[2016-10-23] MEDS: NIFEDIPINE 60 MG TABLET.SA (PROCARDIA XL 60 MG) PO SCH ×2 (09:46→22:41)
[2016-10-23] MEDS: METOPROLOL TARTRATE 50 MG TABLET PO SCH ×2 (09:46→22:41)
[2016-10-23] MEDS: FUROSEMIDE 40 MG/4 ML VIAL IVP SCH (09:47)
[2016-10-23] MEDS: POLYETHYLENE GLYCOL 3350, 17 GM/ POWD.PACK PO SCH (09:48)
[2016-10-23] MEDS: BALSAM PERU/CASTOR OIL 60 GM OINT...G. TP SCH (09:57)
[2016-10-23 12:47] VITALS: BP_SYST 105
[2016-10-23] MEDS: PIPERACILLIN/TAZO 2.25G/DEX-IS 50 ML IV SCH ×2 (14:50→22:37)
[2016-10-23 16:33] VITALS: BP_SYST 111
[2016-10-23 20:30] VITALS: BP_SYST 153
[2016-10-24] MEDS: METOCLOPRAMIDE HCL 10 MG TABLET PO SCH ×3 (00:05→12:33)
[2016-10-24 03:01] VITALS: BP_SYST 141
[2016-10-24] MEDS: HYDROmorphone 1 MG INJ. 1 MG/ML AMPUL IVP PRN ×4 (04:03→16:51)
[2016-10-24] MEDS: LEVOTHYROXINE SODIUM 0.05 MG TABLET PO SCH (06:31)
[2016-10-24] MEDS: SODIUM BICARBONATE 650 MG TABLET PO SCH ×2 (06:31→15:50)
[2016-10-24] MEDS: cloNIDine HCL 0.1 MG TABLET PO SCH ×2 (06:33→15:51)
[2016-10-24] MEDS: PIPERACILLIN/TAZO 2.25G/DEX-IS 50 ML IV SCH (06:41)
[2016-10-24 08:00] VITALS: BP_SYST 142
[2016-10-24] MEDS: INSULIN ASPART 100 UNITS/ML, 10 ML VIAL (NovoLOG) SUBCUT PRN ×3 (08:12→17:39)
[2016-10-24] MEDS: POLYETHYLENE GLYCOL 3350, 17 GM/ POWD.PACK PO SCH (08:50)
[2016-10-24] MEDS: FUROSEMIDE 40 MG/4 ML VIAL IVP SCH (08:50)
[2016-10-24] MEDS: NIFEDIPINE 60 MG TABLET.SA (PROCARDIA XL 60 MG) PO SCH (08:51)
[2016-10-24] MEDS: ASCORBIC ACID 500 MG TABLET PO SCH (08:51)
[2016-10-24] MEDS: FERROUS SULFATE 325 MG TABLET.DR PO SCH (08:51)
[2016-10-24] MEDS: MULTIVITAMINS TAB 1 TABLET PO SCH (08:51)
[2016-10-24] MEDS: METOPROLOL TARTRATE 50 MG TABLET PO SCH (08:52)
[2016-10-24] MEDS: ASPIRIN 81 MG TAB.CHEW PO SCH (08:52)
[2016-10-24] MEDS: MINOXIDIL 10 MG TABLET (LONITEN) PO SCH (08:52)
[2016-10-24] MEDS: PANTOPRAZOLE SODIUM 40 MG TAB PO SCH (08:52)
[2016-10-24] MEDS ORDERED: RIFAXIMIN 550 MG TABLET PO SCH (09:00)
[2016-10-24] MEDS: BALSAM PERU/CASTOR OIL 60 GM OINT...G. TP SCH (11:43)
[2016-10-24 12:08] VITALS: BP_SYST 141
[2016-10-24 13:00] VITALS: BP_SYST 141
[2016-10-24 16:45] VITALS: BP_SYST 143
[2016-10-24 17:51] VITALS: BP_SYST 142
== END 2016-10-24 18:30 | disposition home or self-care (01) | DRG 441 ==
LOC: SED 19:14 → STU 10-16 01:11 → SMU 10-20 23:19
PROVIDERS: ADMIT Internal Medicine Hospice and Palliative Medicine; ATTEND Internal Medicine Hospice and Palliative Medicine
PROC: 0FB13ZX Excision of Right Lobe Liver, Percutaneous Approach, Diagnostic (ICD-10-PCS; principal; 2016-10-21)
DX: K76.7 Hepatorenal syndrome (principal); N17.0 Acute kidney failure with tubular necrosis; I50.33 Acute on chronic diastolic (congestive) heart failure; E43 Unspecified severe protein-calorie malnutrition; I13.0 Hypertensive heart and chronic kidney disease with heart failure and stage 1 through stage 4 chronic kidney disease, or unspecified chronic kidney disease; R18.8 Other ascites; N18.5 Chronic kidney disease, stage 5; S40.021A Contusion of right upper arm, initial encounter; K74.60 Unspecified cirrhosis of liver; I10 Essential (primary) hypertension; B19.20 Unspecified viral hepatitis C without hepatic coma; J44.9 Chronic obstructive pulmonary disease, unspecified; E11.22 Type 2 diabetes mellitus with diabetic chronic kidney disease; D63.8 Anemia in other chronic diseases classified elsewhere; W19.XXXA Unspecified fall, initial encounter; F32.9 Major depressive disorder, single episode, unspecified; R16.0 Hepatomegaly, not elsewhere classified; E11.51 Type 2 diabetes mellitus with diabetic peripheral angiopathy without gangrene; E03.9 Hypothyroidism, unspecified; I25.10 Atherosclerotic heart disease of native coronary artery without angina pectoris; E88.09 Other disorders of plasma-protein metabolism, not elsewhere classified; I27.2 Other secondary pulmonary hypertension; Z68.27 Body mass index [BMI] 27.0-27.9, adult; Z88.6 Allergy status to analgesic agent; Z79.4 Long term (current) use of insulin; Y93.89 Activity, other specified; Y92.89 Other specified places as the place of occurrence of the external cause; Y99.8 Other external cause status; Z86.73 Personal history of transient ischemic attack (TIA), and cerebral infarction without residual deficits
CPT/HCPCS: 36415; 47000; 71010; 71100; 76700-TC; 76705; 80053; 80061; 81000-TC; 82105; 82140-TC; 82150-TC; 82962; 83735-TC; 83880; 84443-TC; 85025; 85610-TC; 87081; 87086; 88307; 88313; 93005; 93970; 94640; 96374; 96375; 96376; 99285; J0696; J1170; J1200; J1815; J1940; J2001; J2543; J3490; J7050; J7060; J8597

== ENCOUNTER 2016-11-01 13:41 | Inpatient (IN) | payer OTHER, MEDICAID ==
[~2016-11-01] VITALS: Ht 149.9 cm; Wt 54.0 kg
[~2016-11-01 13:41] MED LIST changes: -ACET-1010 PO; -ARTT OP; +ASCO500T20 PO; +BALS60OI TP; +CAT.1 PO; -CLON1PAT10 TD; +FERR-57 PO; -FLOEARD OP; -HYDR100T25 PO; +INSU100V11 SQ; +INSU100V26 SUBCUT; +IPRA3AMP9 INH; +LACT-47 PO; +LACT1CAP61 PO; +LEVO50TA77 PO; -LEVO75TA7 PO; +LON10 PO; -LORA-258 PO; +LORA1TAB PO; -METO-290 PO; +METO-442 PO; +METO10TA3 IVP; -METO25TA3 PO; +MULT PO; -NA P118E RC; -NEU400 PO; +NIFE60TA83 PO; +POLY17PO4 PO; +PRO40 PO; +RIFA550T5 PO; +SODI650T PO; -SPIR50TA26 PO; +SSNOVOLOG SUBCUT; -TYC3 PO; +ZIN220 PO
[2016-11-01 13:51] VITALS: BP_SYST 206
[2016-11-01] MEDS ORDERED: ONDA4TAB55 PO (14:10)
[2016-11-01] MEDS ORDERED: DIPH-179 PO (14:10)
[2016-11-01] MEDS ORDERED: ONDANSETRON HCL 4 MG/2 ML VIAL IVP ONE ×2 (14:15→15:30)
[2016-11-01] MEDS ORDERED: NACL 0.9% 1,000 ML IV ONE (14:15)
[2016-11-01] MEDS ORDERED: MORPHINE 4 MG/ML INJ. SYRINGE IVP ONE (14:15)
[2016-11-01] MEDS ORDERED: cloNIDine HCL 0.3 MG/24 HR PATCH.TDWK TD ONE (14:30)
[2016-11-01 15:12] LABS: BASOPHILS % (AUTO) 0.3 % (0.0-2.0); EOSINOPHILS % (AUTO) 0.4 % (0.0-4.0); HEMATOCRIT 31.4 % (36-48); HEMOGLOBIN 10.4 g/dL (12.0-16.0); LYMPHOCYTES # (AUTO) 0.7 K/uL (1.0-5.5); LYMPHOCYTES % (AUTO) 9.9 % (20.5-51.5); MEAN CORPUSCULAR HEMOGLOBIN 31 pg (27-31); MEAN CORPUSCULAR HGB CONC 33 % (32-36); MEAN CORPUSCULAR VOLUME 94 fL (79.0-98.0); MONOCYTES # (AUTO) 0.4 K/uL (0.0-1.0); MONOCYTES % (AUTO) 5.7 % (1.7-9.3); NEUTROPHILS # (AUTO) 5.6 K/uL (1.8-7.7); NEUTROPHILS % (AUTO) 83.7 % (40.0-70.0); PLATELET COUNT (AUTO) 262 K/uL (130-430); RED BLOOD CELL COUNT(AUTO) 3.33 MIL/uL (4.2-6.2); RED CELL DISTRIBUTION WIDTH 15.3 % (9.0-15.0); WHITE BLOOD COUNT (AUTO) 6.7 K/uL (4.8-10.8)
[2016-11-01 15:16] LABS: CALCIUM 8.6 mg/dL (8.4-11.0); CREATININE 1.66 mg/dL (0.55-1.30); POTASSIUM 3.8 mmol/L (3.5-5.1)
[2016-11-01 15:19] LABS: INR 1.1 (0.8-1.2); PROTHROMBIN TIME 11.7 SECS (9.5-12.5)
[2016-11-01 15:20] LABS: ALBUMIN 3.2 g/dL (3.4-4.8); TOTAL BILIRUBIN 0.4 mg/dL (0.0-1.0); TOTAL PROTEIN, SERUM 7.6 g/dL (6.4-8.3)
[2016-11-01] MEDS ORDERED: ONDANSETRON HCL 4 MG/2 ML VIAL IM ONE (15:30)
[2016-11-01] MEDS ORDERED: hydrALAZINE HCL 20 MG/ML VIAL IVP ONE ×2 (16:15→18:30)
[2016-11-01] MEDS ORDERED: HYDROmorphone 1 MG INJ. 1 MG/ML AMPUL IVP ONE ×2 (16:45→18:30)
[2016-11-01 18:29] LABS: BILIRUBIN,URINE NEGATIVE (NEGATIVE); BLOOD, URINE 2+ (NEGATIVE); CLARITY/URINE SL HAZY (CLEAR); COLOR,URINE YELLOW (YELLOW); GLUCOSE,URINE TRACE (NEGATIVE); KETONES,URINE TRACE (NEGATIVE); LEUKOCYTE ESTERASE ,URINE NEGATIVE (NEGATIVE); NITRITE, URINE NEGATIVE (NEGATIVE); PROTEIN URINE 3+ (NEGATIVE); UROBILINOGEN,URINE 0.2 (0.2-1.0)
[2016-11-01 18:43] LABS: BACTERIA,URINE MODERATE /HPF (None Seen); MUCUS,URINE None Seen /LPF (None Seen); YEAST,URINE Many /HPF (None Seen)
[2016-11-01 19:40] VITALS: BP_SYST 152
[2016-11-01] MEDS: HYDROcodone/ACETAMIN 5-325 MG TAB (NORCO/ VICODIN) PO PRN (20:55)
[2016-11-02] VITALS (9 sets, daily range): BP systolic 112–206
[2016-11-02] MEDS ORDERED: BISACODYL 10 MG/SUPPOSITORY RC PRN (00:30)
[2016-11-02] MEDS ORDERED: LORazepam 1 MG TABLET PO PRN (00:30)
[2016-11-02] MEDS ORDERED: ONDANSETRON HCL 4 MG/2 ML VIAL IM PRN (00:30)
[2016-11-02] MEDS ORDERED: ACETAMINOPHEN 325 MG TABLET PO PRN (00:30)
[2016-11-02] MEDS ORDERED: BALSAM PERU/CASTOR OIL 60 GM OINT...G. TP PRN (00:30)
[2016-11-02] MEDS ORDERED: DIPHENOXYLATE HCL/ATROP SULF 2.5 MG TAB PO PRN (00:30)
[2016-11-02] MEDS ORDERED: IPRATROPIUM/ALBUTEROL SULFATE 3 ML AMPUL.NEB INH PRN (00:30)
[2016-11-02] MEDS ORDERED: cloNIDine HCL 0.1 MG TABLET PO ONE (01:15)
[2016-11-02] MEDS: HYDROmorphone 1 MG INJ. 1 MG/ML AMPUL IVP PRN ×5 (01:36→20:34)
[2016-11-02] MEDS ORDERED: ONDANSETRON HCL 4 MG/2 ML VIAL IVP PRN (01:45)
[2016-11-02] MEDS ORDERED: cefTRIAXone 1 GM VIAL ONE (02:47)
[2016-11-02] MEDS: cefTRIAXone 1 GM in D5W 50 ML IV SCH (03:02)
[2016-11-02] MEDS: cloNIDine HCL 0.1 MG TABLET PO SCH ×3 (05:57→21:12)
[2016-11-02] MEDS ORDERED: cloNIDine HCL 0.1 MG TABLET PO PRN (06:00)
[2016-11-02 06:45] LABS: BASOPHILS % (AUTO) 0.3 % (0.0-2.0); EOSINOPHILS % (AUTO) 0.5 % (0.0-4.0); HEMATOCRIT 25.3 % (36-48); HEMOGLOBIN 8.4 g/dL (12.0-16.0); LYMPHOCYTES # (AUTO) 0.7 K/uL (1.0-5.5); LYMPHOCYTES % (AUTO) 13.7 % (20.5-51.5); MEAN CORPUSCULAR HEMOGLOBIN 31 pg (27-31); MEAN CORPUSCULAR HGB CONC 33 % (32-36); MEAN CORPUSCULAR VOLUME 94 fL (79.0-98.0); MONOCYTES # (AUTO) 0.3 K/uL (0.0-1.0); MONOCYTES % (AUTO) 5.9 % (1.7-9.3); NEUTROPHILS # (AUTO) 4.2 K/uL (1.8-7.7); NEUTROPHILS % (AUTO) 79.6 % (40.0-70.0); PLATELET COUNT (AUTO) 209 K/uL (130-430); RED CELL DISTRIBUTION WIDTH 15.5 % (9.0-15.0); WHITE BLOOD COUNT (AUTO) 5.2 K/uL (4.8-10.8)
[2016-11-02 07:21] LABS: ALBUMIN 2.6 g/dL (3.4-4.8); CALCIUM 8.1 mg/dL (8.4-11.0); CREATININE 1.63 mg/dL (0.55-1.30); POTASSIUM 3.8 mmol/L (3.5-5.1); TOTAL BILIRUBIN 0.3 mg/dL (0.0-1.0); TOTAL PROTEIN, SERUM 6.1 g/dL (6.4-8.3)
[2016-11-02] MEDS: PANTOPRAZOLE SODIUM 40 MG TAB PO SCH ×2 (08:03→21:04)
[2016-11-02] MEDS: FERROUS SULFATE 325 MG TABLET.DR PO SCH ×2 (08:04→21:01)
[2016-11-02] MEDS: NIFEDIPINE 60 MG TABLET.SA (PROCARDIA XL 60 MG) PO SCH ×3 (08:04→21:04)
[2016-11-02] MEDS: MULTIVITAMINS TAB 1 TABLET PO SCH (08:05)
[2016-11-02] MEDS: LEVOTHYROXINE SODIUM 0.05 MG TABLET PO SCH (08:05)
[2016-11-02] MEDS: METOPROLOL TARTRATE 50 MG TABLET PO SCH ×2 (08:05→21:02)
[2016-11-02] MEDS: RIFAXIMIN 550 MG TABLET PO SCH ×2 (08:05→21:03)
[2016-11-02] MEDS: ASCORBIC ACID 500 MG TABLET PO SCH (08:05)
[2016-11-02] MEDS: MINOXIDIL 10 MG TABLET (LONITEN) PO SCH ×2 (08:05→21:06)
[2016-11-02] MEDS: LACTOBACILLUS RHAMNOSUS GG 1 CAP CAPSULE PO SCH ×2 (08:11→21:05)
[2016-11-02] MEDS ORDERED: NIFEDIPINE 60 MG TABLET.SA (PROCARDIA XL 60 MG) PO SCH (09:00)
[2016-11-02] MEDS ORDERED: DEXTROSE 50% JECT 50 ML DISP.SYRIN IVP PRN ×2 (17:45)
[2016-11-02] MEDS ORDERED: COMMUNICATION ORDER XX ONE (18:00)
[2016-11-03 00:38] VITALS: BP_SYST 112
[2016-11-03] MEDS: HYDROmorphone 1 MG INJ. 1 MG/ML AMPUL IVP PRN ×6 (01:35→23:02)
[2016-11-03] MEDS: cefTRIAXone 1 GM in D5W 50 ML IV SCH (01:40)
[2016-11-03 03:37] VITALS: BP_SYST 103
[2016-11-03] MEDS: cloNIDine HCL 0.1 MG TABLET PO SCH ×3 (06:04→23:05)
[2016-11-03 07:59] LABS: BASOPHILS % (AUTO) 0.5 % (0.0-2.0); EOSINOPHILS # (AUTO) 0.3 K/uL (0.0-0.4); EOSINOPHILS % (AUTO) 5.3 % (0.0-4.0); HEMATOCRIT 27.2 % (36-48); HEMOGLOBIN 8.9 g/dL (12.0-16.0); LYMPHOCYTES # (AUTO) 0.9 K/uL (1.0-5.5); LYMPHOCYTES % (AUTO) 17.1 % (20.5-51.5); MEAN CORPUSCULAR HEMOGLOBIN 31 pg (27-31); MEAN CORPUSCULAR HGB CONC 33 % (32-36); MEAN CORPUSCULAR VOLUME 95 fL (79.0-98.0); MONOCYTES # (AUTO) 0.4 K/uL (0.0-1.0); MONOCYTES % (AUTO) 7.8 % (1.7-9.3); NEUTROPHILS # (AUTO) 3.6 K/uL (1.8-7.7); NEUTROPHILS % (AUTO) 69.3 % (40.0-70.0); PLATELET COUNT (AUTO) 240 K/uL (130-430); RED BLOOD CELL COUNT(AUTO) 2.86 MIL/uL (4.2-6.2); RED CELL DISTRIBUTION WIDTH 16.1 % (9.0-15.0); WHITE BLOOD COUNT (AUTO) 5.2 K/uL (4.8-10.8)
[2016-11-03 08:00] LABS: ALBUMIN 2.3 g/dL (3.4-4.8); CALCIUM 7.6 mg/dL (8.4-11.0); CREATININE 2.04 mg/dL (0.55-1.30); POTASSIUM 4.2 mmol/L (3.5-5.1); TOTAL BILIRUBIN 0.2 mg/dL (0.0-1.0); TOTAL PROTEIN, SERUM 5.8 g/dL (6.4-8.3)
[2016-11-03 08:17] VITALS: BP_SYST 113
[2016-11-03] MEDS: MULTIVITAMINS TAB 1 TABLET PO SCH (08:51)
[2016-11-03] MEDS: LACTOBACILLUS RHAMNOSUS GG 1 CAP CAPSULE PO SCH ×2 (08:51→20:51)
[2016-11-03] MEDS: PANTOPRAZOLE SODIUM 40 MG TAB PO SCH ×2 (08:51→20:48)
[2016-11-03] MEDS: ASCORBIC ACID 500 MG TABLET PO SCH (08:51)
[2016-11-03] MEDS: RIFAXIMIN 550 MG TABLET PO SCH ×2 (08:51→20:50)
[2016-11-03] MEDS: FERROUS SULFATE 325 MG TABLET.DR PO SCH ×2 (08:51→20:49)
[2016-11-03] MEDS: LEVOTHYROXINE SODIUM 0.05 MG TABLET PO SCH (08:51)
[2016-11-03] MEDS: METOPROLOL TARTRATE 50 MG TABLET PO SCH ×2 (08:52→20:49)
[2016-11-03] MEDS: NIFEDIPINE 60 MG TABLET.SA (PROCARDIA XL 60 MG) PO SCH ×3 (08:52→20:51)
[2016-11-03] MEDS: MINOXIDIL 10 MG TABLET (LONITEN) PO SCH ×2 (08:53→20:47)
[2016-11-03] MEDS: 0.45% NACL 1,000 ML IV SCH ×2 (11:05→20:52)
[2016-11-03 12:10] VITALS: BP_SYST 93
[2016-11-03 16:00] LABS: ALBUMIN 2.4 g/dL (3.4-4.8); CALCIUM 7.7 mg/dL (8.4-11.0); CREATININE 2.04 mg/dL (0.55-1.30); POTASSIUM 5.2 mmol/L (3.5-5.1); TOTAL BILIRUBIN 0.2 mg/dL (0.0-1.0); TOTAL PROTEIN, SERUM 6.1 g/dL (6.4-8.3)
[2016-11-03 16:42] VITALS: BP_SYST 118
[2016-11-03] MEDS: INSULIN ASPART 100 UNITS/ML, 10 ML VIAL (NovoLOG) SUBCUT PRN (21:00)
[2016-11-04] VITALS: BP_SYST 125
[2016-11-04] MEDS: HYDROmorphone 1 MG INJ. 1 MG/ML AMPUL IVP PRN ×6 (03:01→22:30)
[2016-11-04] MEDS: cefTRIAXone 1 GM in D5W 50 ML IV SCH (03:08)
[2016-11-04 04:15] VITALS: BP_SYST 142
[2016-11-04] MEDS: cloNIDine HCL 0.1 MG TABLET PO SCH ×3 (05:42→21:27)
[2016-11-04 07:25] LABS: BASOPHILS % (AUTO) 0.6 % (0.0-2.0); EOSINOPHILS # (AUTO) 0.1 K/uL (0.0-0.4); EOSINOPHILS % (AUTO) 2.8 % (0.0-4.0); HEMATOCRIT 28.5 % (36-48); HEMOGLOBIN 9.4 g/dL (12.0-16.0); LYMPHOCYTES % (AUTO) 19.6 % (20.5-51.5); MEAN CORPUSCULAR HEMOGLOBIN 31 pg (27-31); MEAN CORPUSCULAR HGB CONC 33 % (32-36); MEAN CORPUSCULAR VOLUME 95 fL (79.0-98.0); MONOCYTES # (AUTO) 0.4 K/uL (0.0-1.0); MONOCYTES % (AUTO) 7.2 % (1.7-9.3); NEUTROPHILS # (AUTO) 3.7 K/uL (1.8-7.7); NEUTROPHILS % (AUTO) 69.8 % (40.0-70.0); PLATELET COUNT (AUTO) 242 K/uL (130-430); WHITE BLOOD COUNT (AUTO) 5.2 K/uL (4.8-10.8)
[2016-11-04 07:51] LABS: ALBUMIN 2.5 g/dL (3.4-4.8); CALCIUM 7.6 mg/dL (8.4-11.0); CREATININE 2.25 mg/dL (0.55-1.30); POTASSIUM 4.8 mmol/L (3.5-5.1); TOTAL BILIRUBIN 0.2 mg/dL (0.0-1.0); TOTAL PROTEIN, SERUM 6.2 g/dL (6.4-8.3)
[2016-11-04] MEDS: PANTOPRAZOLE SODIUM 40 MG TAB PO SCH ×2 (08:56→20:03)
[2016-11-04] MEDS: RIFAXIMIN 550 MG TABLET PO SCH ×2 (08:56→20:02)
[2016-11-04] MEDS: LACTOBACILLUS RHAMNOSUS GG 1 CAP CAPSULE PO SCH ×2 (08:56→20:03)
[2016-11-04] MEDS: MULTIVITAMINS TAB 1 TABLET PO SCH (09:00)
[2016-11-04] MEDS: MINOXIDIL 10 MG TABLET (LONITEN) PO SCH ×2 (09:01→20:03)
[2016-11-04] MEDS: LEVOTHYROXINE SODIUM 0.05 MG TABLET PO SCH (09:01)
[2016-11-04] MEDS: ASCORBIC ACID 500 MG TABLET PO SCH (09:01)
[2016-11-04] MEDS: FERROUS SULFATE 325 MG TABLET.DR PO SCH ×2 (09:01→20:03)
[2016-11-04] MEDS: NIFEDIPINE 60 MG TABLET.SA (PROCARDIA XL 60 MG) PO SCH ×3 (09:02→20:03)
[2016-11-04] MEDS: METOPROLOL TARTRATE 50 MG TABLET PO SCH ×2 (09:02→20:04)
[2016-11-04 09:06] VITALS: BP_SYST 106
[2016-11-04 12:17] VITALS: BP_SYST 124
[2016-11-04] MEDS: HYDROcodone/ACETAMIN 5-325 MG TAB (NORCO/ VICODIN) PO PRN ×3 (12:48→21:27)
[2016-11-04] MEDS: INSULIN ASPART 100 UNITS/ML, 10 ML VIAL (NovoLOG) SUBCUT PRN ×3 (12:50→20:12)
[2016-11-04] MEDS: ANTIFUNGAL CLEAR OINTMENT TP SCH ×2 (14:30→20:05)
[2016-11-04 15:33] VITALS: BP_SYST 126
[2016-11-04 20:00] VITALS: BP_SYST 136
[2016-11-04] MEDS: 0.45% NACL 1,000 ML IV SCH ×2 (20:00→20:02)
[2016-11-05] VITALS (9 sets, daily range): BP systolic 94–157
[2016-11-05] MEDS: cefTRIAXone 1 GM in D5W 50 ML IV SCH (02:24)
[2016-11-05] MEDS: HYDROmorphone 1 MG INJ. 1 MG/ML AMPUL IVP PRN ×6 (02:24→23:37)
[2016-11-05] MEDS: 0.45% NACL 1,000 ML IV SCH (02:25)
[2016-11-05] MEDS: cloNIDine HCL 0.1 MG TABLET PO SCH ×3 (06:01→21:04)
[2016-11-05] MEDS: INSULIN ASPART 100 UNITS/ML, 10 ML VIAL (NovoLOG) SUBCUT PRN ×3 (06:04→21:49)
[2016-11-05 07:26] LABS: HEMATOCRIT 30.1 % (36-48); HEMOGLOBIN 10.1 g/dL (12.0-16.0); LYMPHOCYTES % (AUTO) 17.1 % (20.5-51.5); MEAN CORPUSCULAR HEMOGLOBIN 32 pg (27-31); MEAN CORPUSCULAR HGB CONC 33 % (32-36); MEAN CORPUSCULAR VOLUME 95 fL (79.0-98.0); NEUTROPHILS % (AUTO) 74.1 % (40.0-70.0); PLATELET COUNT (AUTO) 244 K/uL (130-430); RED BLOOD CELL COUNT(AUTO) 3.16 MIL/uL (4.2-6.2); RED CELL DISTRIBUTION WIDTH 15.6 % (9.0-15.0); WHITE BLOOD COUNT (AUTO) 5.3 K/uL (4.8-10.8)
[2016-11-05 07:27] LABS: BASOPHILS % (AUTO) 0.3 % (0.0-2.0); EOSINOPHILS # (AUTO) 0.2 K/uL (0.0-0.4); LYMPHOCYTES # (AUTO) 0.9 K/uL (1.0-5.5); MONOCYTES # (AUTO) 0.3 K/uL (0.0-1.0); MONOCYTES % (AUTO) 5.5 % (1.7-9.3); NEUTROPHILS # (AUTO) 3.9 K/uL (1.8-7.7)
[2016-11-05 07:35] LABS: ALBUMIN 2.7 g/dL (3.4-4.8); CALCIUM 7.8 mg/dL (8.4-11.0); CREATININE 2.15 mg/dL (0.55-1.30); POTASSIUM 4.6 mmol/L (3.5-5.1); TOTAL BILIRUBIN 0.2 mg/dL (0.0-1.0); TOTAL PROTEIN, SERUM 6.5 g/dL (6.4-8.3)
[2016-11-05] MEDS: FERROUS SULFATE 325 MG TABLET.DR PO SCH ×2 (09:00→21:05)
[2016-11-05] MEDS: LEVOTHYROXINE SODIUM 0.05 MG TABLET PO SCH (09:00)
[2016-11-05] MEDS: ASCORBIC ACID 500 MG TABLET PO SCH (09:00)
[2016-11-05] MEDS: MULTIVITAMINS TAB 1 TABLET PO SCH (09:00)
[2016-11-05] MEDS: MINOXIDIL 10 MG TABLET (LONITEN) PO SCH ×2 (09:00→21:05)
[2016-11-05] MEDS: RIFAXIMIN 550 MG TABLET PO SCH ×2 (09:00→21:03)
[2016-11-05] MEDS: PANTOPRAZOLE SODIUM 40 MG TAB PO SCH ×2 (09:00→21:03)
[2016-11-05] MEDS: LACTOBACILLUS RHAMNOSUS GG 1 CAP CAPSULE PO SCH ×2 (09:00→21:04)
[2016-11-05] MEDS: NIFEDIPINE 60 MG TABLET.SA (PROCARDIA XL 60 MG) PO SCH ×3 (09:00→21:03)
[2016-11-05] MEDS: HYDROcodone/ACETAMIN 5-325 MG TAB (NORCO/ VICODIN) PO PRN ×2 (09:17→21:47)
[2016-11-05] MEDS: METOPROLOL TARTRATE 50 MG TABLET PO SCH ×2 (09:17→21:04)
[2016-11-05] MEDS: ANTIFUNGAL CLEAR OINTMENT TP SCH ×2 (09:59→21:46)
[2016-11-05] MEDS: D5/0.45 NS 1,000 ML IV SCH ×2 (10:42→21:06)
[2016-11-05] MEDS ORDERED: SIMETHICONE 40 MG/0.6 ML ML ONE (12:53)
[2016-11-05] MEDS: MIDAZOLAM HCL 5 MG/5 ML VIAL ONE ×3 (13:26→13:37)
[2016-11-05] MEDS: MEPERIDINE HCL/PF 100 MG/ML AMP ONE ×3 (13:26→13:37)
[2016-11-06] MEDS: cefTRIAXone 1 GM in D5W 50 ML IV SCH (02:34)
[2016-11-06 03:34] VITALS: BP_SYST 113
[2016-11-06] MEDS: HYDROmorphone 1 MG INJ. 1 MG/ML AMPUL IVP PRN ×5 (03:34→21:22)
[2016-11-06] MEDS: cloNIDine HCL 0.1 MG TABLET PO SCH ×2 (06:00→14:00)
[2016-11-06] MEDS: INSULIN ASPART 100 UNITS/ML, 10 ML VIAL (NovoLOG) SUBCUT PRN ×3 (06:04→16:23)
[2016-11-06 08:25] VITALS: BP_SYST 109
[2016-11-06] MEDS: ANTIFUNGAL CLEAR OINTMENT TP SCH (09:00)
[2016-11-06] MEDS: PANTOPRAZOLE SODIUM 40 MG TAB PO SCH ×2 (12:46→21:28)
[2016-11-06] MEDS: RIFAXIMIN 550 MG TABLET PO SCH ×2 (12:46→21:28)
[2016-11-06] MEDS: FERROUS SULFATE 325 MG TABLET.DR PO SCH ×2 (12:46→21:28)
[2016-11-06] MEDS: ASCORBIC ACID 500 MG TABLET PO SCH (12:46)
[2016-11-06] MEDS: LACTOBACILLUS RHAMNOSUS GG 1 CAP CAPSULE PO SCH ×2 (12:46→21:28)
[2016-11-06] MEDS: MINOXIDIL 10 MG TABLET (LONITEN) PO SCH ×2 (12:47→21:27)
[2016-11-06] MEDS: LEVOTHYROXINE SODIUM 0.05 MG TABLET PO SCH (12:47)
[2016-11-06] MEDS: METOPROLOL TARTRATE 50 MG TABLET PO SCH ×2 (12:48→21:28)
[2016-11-06] MEDS: NIFEDIPINE 60 MG TABLET.SA (PROCARDIA XL 60 MG) PO SCH ×3 (12:49→21:28)
[2016-11-06] MEDS: MULTIVITAMINS TAB 1 TABLET PO SCH (12:50)
[2016-11-06 14:58] VITALS: BP_SYST 102
[2016-11-06 15:25] VITALS: BP_SYST 148
[2016-11-06] MEDS ORDERED: REGL10 PO (15:28)
[2016-11-06] MEDS ORDERED: DOXY100T2 PO (15:29)
[2016-11-06] MEDS ORDERED: PRO40 PO (15:30)
[2016-11-06] MEDS ORDERED: TRAM50TA92 PO (15:31)
[2016-11-06 17:17] VITALS: BP_SYST 115
[2016-11-06 21:46] VITALS: BP_SYST 142
== END 2016-11-06 22:14 | disposition home or self-care (01) | DRG 441 ==
LOC: SED 13:41 → STU 19:07 → SMU 11-04 17:13
PROVIDERS: ADMIT Internal Medicine Hospice and Palliative Medicine; ATTEND Internal Medicine Hospice and Palliative Medicine
PROC: 0DB68ZX Excision of Stomach, Via Natural or Artificial Opening Endoscopic, Diagnostic (ICD-10-PCS; 2016-11-05)
PROC: 0DB98ZX Excision of Duodenum, Via Natural or Artificial Opening Endoscopic, Diagnostic (ICD-10-PCS; principal; 2016-11-05 14:15)
DX: K72.90 Hepatic failure, unspecified without coma (principal); K65.9 Peritonitis, unspecified; J18.9 Pneumonia, unspecified organism; R18.8 Other ascites; N39.0 Urinary tract infection, site not specified; S22.41XA Multiple fractures of ribs, right side, initial encounter for closed fracture; K74.60 Unspecified cirrhosis of liver; I16.0 Hypertensive urgency; I12.9 Hypertensive chronic kidney disease with stage 1 through stage 4 chronic kidney disease, or unspecified chronic kidney disease; N18.9 Chronic kidney disease, unspecified; E11.22 Type 2 diabetes mellitus with diabetic chronic kidney disease; B18.2 Chronic viral hepatitis C; D63.8 Anemia in other chronic diseases classified elsewhere; E78.5 Hyperlipidemia, unspecified; K21.9 Gastro-esophageal reflux disease without esophagitis; K29.70 Gastritis, unspecified, without bleeding; K31.7 Polyp of stomach and duodenum; W18.39XA Other fall on same level, initial encounter; Y93.89 Activity, other specified; Y92.89 Other specified places as the place of occurrence of the external cause; Y99.8 Other external cause status; Z80.49 Family history of malignant neoplasm of other genital organs; Z87.11 Personal history of peptic ulcer disease; Z98.51 Tubal ligation status; F41.9 Anxiety disorder, unspecified; E03.9 Hypothyroidism, unspecified; E11.51 Type 2 diabetes mellitus with diabetic peripheral angiopathy without gangrene; Z86.73 Personal history of transient ischemic attack (TIA), and cerebral infarction without residual deficits; F32.9 Major depressive disorder, single episode, unspecified; G47.00 Insomnia, unspecified; R16.0 Hepatomegaly, not elsewhere classified; Z88.6 Allergy status to analgesic agent
CPT/HCPCS: 36415; 43239; 70450-TC; 71110; 76700-TC; 78264-TC; 80053; 81000-TC; 82105; 82150-TC; 82550-TC; 82962; 83690-TC; 83735-TC; 84302-TC; 84484; 85025; 85610-TC; 85730-TC; 87081; 87086; 88305; 88312; 88313; 93005; 96361; 96372; 96374; 96375; 97110-GP; 97116-GP; 97530-GP; 99285; A9541; J0360; J0696; J1170; J1815; J2175; J2250; J2270; J2405; J7030; J7050; J7060

== ENCOUNTER 2016-11-27 14:25 | Inpatient (IN) | payer OTHER, MEDICAID ==
[~2016-11-27] VITALS: Ht 149.9 cm; Wt 64.0 kg
[~2016-11-27 14:25] MED LIST changes: +DIPH-179 PO; +DOXY100T2 PO; -MAGN400O4 PO; -METO10TA3 IVP; +ONDA4TAB55 PO; +REGL10 PO; +TRAM50TA92 PO
[2016-11-27 14:31] VITALS: BP_SYST 145
[2016-11-27] MEDS ORDERED: ONDANSETRON HCL 4 MG/2 ML VIAL IVP ONE ×2 (14:45→17:15)
[2016-11-27] MEDS ORDERED: HYDROmorphone 1 MG INJ. 1 MG/ML AMPUL IVP ONE ×2 (15:30→17:15)
[2016-11-27 16:03] LABS: BASOPHILS % (AUTO) 0.3 % (0.0-2.0); HEMATOCRIT 27.9 % (36-48); HEMOGLOBIN 9.1 g/dL (12.0-16.0); LYMPHOCYTES # (AUTO) 0.6 K/uL (1.0-5.5); LYMPHOCYTES % (AUTO) 10.6 % (20.5-51.5); MEAN CORPUSCULAR HEMOGLOBIN 31 pg (27-31); MEAN CORPUSCULAR HGB CONC 33 % (32-36); MEAN CORPUSCULAR VOLUME 94 fL (79.0-98.0); MONOCYTES # (AUTO) 0.2 K/uL (0.0-1.0); MONOCYTES % (AUTO) 4.5 % (1.7-9.3); NEUTROPHILS # (AUTO) 4.6 K/uL (1.8-7.7); NEUTROPHILS % (AUTO) 84.6 % (40.0-70.0); PLATELET COUNT (AUTO) 191 K/uL (130-430); RED BLOOD CELL COUNT(AUTO) 2.98 MIL/uL (4.2-6.2); RED CELL DISTRIBUTION WIDTH 15.2 % (9.0-15.0); WHITE BLOOD COUNT (AUTO) 5.4 K/uL (4.8-10.8)
[2016-11-27 16:45] LABS: CALCIUM 9.2 mg/dL (8.4-11.0); CREATININE 1.7 mg/dL (0.55-1.30); POTASSIUM 4.2 mmol/L (3.5-5.1)
[2016-11-27 16:49] LABS: ALBUMIN 3.3 g/dL (3.4-4.8); TOTAL BILIRUBIN 0.5 mg/dL (0.0-1.0)
[2016-11-27 18:03] LABS: BILIRUBIN,URINE NEGATIVE (NEGATIVE); BLOOD, URINE 2+ (NEGATIVE); COLOR,URINE YELLOW (YELLOW); GLUCOSE,URINE TRACE (NEGATIVE); KETONES,URINE NEGATIVE (NEGATIVE); LEUKOCYTE ESTERASE ,URINE NEGATIVE (NEGATIVE); NITRITE, URINE NEGATIVE (NEGATIVE); PROTEIN URINE 3+ (NEGATIVE); UROBILINOGEN,URINE 0.2 (0.2-1.0)
[2016-11-27 18:04] LABS: CLARITY/URINE HAZY (CLEAR)
[2016-11-27 18:11] LABS: BACTERIA,URINE MANY /HPF (None Seen); YEAST,URINE Many /HPF (None Seen)
[2016-11-27 18:12] LABS: MUCUS,URINE None Seen /LPF (None Seen)
[2016-11-27 20:12] VITALS: BP_SYST 137
[2016-11-27] MEDS ORDERED: cefTRIAXone 1 GM IVPB PREMIX 50 ML IV ONE (21:22)
[2016-11-27] MEDS: cefTRIAXone 1 GM IVPB PREMIX 50 ML IV SCH (21:49)
[2016-11-27] MEDS: ONDANSETRON HCL 4 MG/2 ML VIAL IVP PRN (21:54)
[2016-11-28] VITALS (14 sets, daily range): BP systolic 100–226
[2016-11-28] MEDS: KCL 20 mEq in 0.45% NS 1000 mL 1,000 ML IV SCH ×2 (00:57→17:56)
[2016-11-28 07:02] LABS: BASOPHILS # (AUTO) 0.1 K/uL (0.0-0.2); BASOPHILS % (AUTO) 1.6 % (0.0-2.0); EOSINOPHILS % (AUTO) 0.4 % (0.0-4.0); HEMATOCRIT 28.9 % (36-48); HEMOGLOBIN 9.6 g/dL (12.0-16.0); LYMPHOCYTES # (AUTO) 0.7 K/uL (1.0-5.5); LYMPHOCYTES % (AUTO) 11.2 % (20.5-51.5); MEAN CORPUSCULAR HEMOGLOBIN 32 pg (27-31); MEAN CORPUSCULAR HGB CONC 33 % (32-36); MEAN CORPUSCULAR VOLUME 95 fL (79.0-98.0); MONOCYTES # (AUTO) 0.5 K/uL (0.0-1.0); MONOCYTES % (AUTO) 7.7 % (1.7-9.3); NEUTROPHILS # (AUTO) 5.2 K/uL (1.8-7.7); NEUTROPHILS % (AUTO) 79.1 % (40.0-70.0); PLATELET COUNT (AUTO) 203 K/uL (130-430); RED BLOOD CELL COUNT(AUTO) 3.05 MIL/uL (4.2-6.2); RED CELL DISTRIBUTION WIDTH 15.6 % (9.0-15.0); WHITE BLOOD COUNT (AUTO) 6.5 K/uL (4.8-10.8)
[2016-11-28 07:20] LABS: CALCIUM 9.1 mg/dL (8.4-11.0); CREATININE 1.68 mg/dL (0.55-1.30); PHOSPHORUS 4.6 mg/dL (2.7-4.5); POTASSIUM 4.6 mmol/L (3.5-5.1)
[2016-11-28] MEDS: NIFEDIPINE 60 MG TABLET.SA (PROCARDIA XL 60 MG) PO SCH ×2 (08:50→21:00)
[2016-11-28] MEDS: METOPROLOL TARTRATE 50 MG TABLET PO SCH ×2 (08:51→21:00)
[2016-11-28] MEDS ORDERED: FUROSEMIDE 40 MG/4 ML VIAL IVP SCH (09:00)
[2016-11-28] MEDS ORDERED: IPRATROPIUM/ALBUTEROL SULFATE 3 ML AMPUL.NEB INH PRN (10:00)
[2016-11-28] MEDS ORDERED: ACETAMINOPHEN 325 MG TABLET PO PRN (10:00)
[2016-11-28] MEDS ORDERED: INSULIN ASPART 100 UNITS/ML, 10 ML VIAL (NovoLOG) SUBCUT PRN (10:00)
[2016-11-28] MEDS ORDERED: LORazepam 1 MG TABLET PO PRN (10:00)
[2016-11-28] MEDS: cloNIDine HCL 0.1 MG TABLET PO PRN (10:42)
[2016-11-28] MEDS: ONDANSETRON HCL 4 MG/2 ML VIAL IVP PRN (10:42)
[2016-11-28] MEDS: METOCLOPRAMIDE HCL 10 MG/10 ML UDC PO SCH ×2 (11:53→17:56)
[2016-11-28] MEDS: LABETALOL 100 MG/ 20ML VIAL IVP PRN (11:55)
[2016-11-28] MEDS ORDERED: traMADol HCL HCL 50 MG TABLET (ULTRAM) PO SCH (14:00)
[2016-11-28] MEDS ORDERED: PRAZOSIN HCL 1 MG CAPSULE PO ONE (14:15)
[2016-11-28] MEDS: SODIUM BICARBONATE 650 MG TABLET PO SCH ×2 (14:25→21:26)
[2016-11-28] MEDS: ANTIFUNGAL CLEAR OINTMENT TP SCH ×2 (14:32→21:26)
[2016-11-28] MEDS: INSULIN REGULAR, HUMAN 100 UNITS/ML, 10 ML VIAL (novoLIN R) SUBCUT PRN ×2 (17:56→21:35)
[2016-11-28] MEDS ORDERED: LORazepam 2 MG/ML VIAL ONE (18:24)
[2016-11-28] MEDS ORDERED: LORazepam 2 MG/ML VIAL IVP PRN (18:30)
[2016-11-28] MEDS: RIFAXIMIN 550 MG TABLET PO SCH (21:00)
[2016-11-28] MEDS: PRAZOSIN HCL 1 MG CAPSULE PO SCH (21:00)
[2016-11-28] MEDS: LACTULOSE 20 GM/30 ML UDC PO SCH (21:00)
[2016-11-28] MEDS: cefTRIAXone 1 GM IVPB PREMIX 50 ML IV SCH (21:19)
[2016-11-28] MEDS: levETIRAcetam 500 MG in NS 100 ML IV SCH (21:20)
[2016-11-28] MEDS: ENOXAPARIN SODIUM 30 MG/0.3 ML SYRINGE SUBCUT SCH (21:25)
[2016-11-29] VITALS (24 sets, daily range): BP systolic 131–201
[2016-11-29] MEDS: METOCLOPRAMIDE HCL 10 MG/10 ML UDC PO SCH
[2016-11-29] MEDS: LABETALOL 100 MG/ 20ML VIAL IVP PRN ×4 (01:56→18:26)
[2016-11-29] MEDS ORDERED: COMMUNICATION ORDER XX ONE ×2 (04:30→05:00)
[2016-11-29] MEDS ORDERED: LORazepam 2 MG/ML VIAL IVP PRN (04:52)
[2016-11-29] MEDS: LEVOTHYROXINE SODIUM 0.1 MG VIAL IVP SCH (05:39)
[2016-11-29] MEDS: METOCLOPRAMIDE HCL 10 MG/2 ML VIAL IVP SCH ×3 (05:39→18:19)
[2016-11-29] MEDS: KCL 20 mEq in 0.45% NS 1000 mL 1,000 ML IV SCH ×2 (05:43→18:23)
[2016-11-29] MEDS: SODIUM BICARBONATE 650 MG TABLET PO SCH ×3 (06:00→21:11)
[2016-11-29] MEDS ORDERED: LEVOTHYROXINE SODIUM 0.05 MG TABLET PO SCH (06:00)
[2016-11-29] MEDS: ANTIFUNGAL CLEAR OINTMENT TP SCH ×2 (09:00→20:38)
[2016-11-29] MEDS ORDERED: PANTOPRAZOLE SODIUM 40 MG TAB PO SCH (09:00)
[2016-11-29 09:05] LABS: BASOPHILS % (AUTO) 0.1 % (0.0-2.0); EOSINOPHILS # (AUTO) 0.1 K/uL (0.0-0.4); HEMATOCRIT 26.5 % (36-48); HEMOGLOBIN 8.8 g/dL (12.0-16.0); LYMPHOCYTES # (AUTO) 0.7 K/uL (1.0-5.5); LYMPHOCYTES % (AUTO) 12.3 % (20.5-51.5); MEAN CORPUSCULAR HEMOGLOBIN 31 pg (27-31); MEAN CORPUSCULAR HGB CONC 33 % (32-36); MEAN CORPUSCULAR VOLUME 94 fL (79.0-98.0); MONOCYTES # (AUTO) 0.4 K/uL (0.0-1.0); MONOCYTES % (AUTO) 6.1 % (1.7-9.3); NEUTROPHILS # (AUTO) 4.6 K/uL (1.8-7.7); NEUTROPHILS % (AUTO) 80.5 % (40.0-70.0); PLATELET COUNT (AUTO) 207 K/uL (130-430); RED BLOOD CELL COUNT(AUTO) 2.82 MIL/uL (4.2-6.2); RED CELL DISTRIBUTION WIDTH 15.1 % (9.0-15.0); WHITE BLOOD COUNT (AUTO) 5.8 K/uL (4.8-10.8)
[2016-11-29] MEDS: PANTOPRAZOLE SODIUM 40 MG/VIAL (PROTONIX) IVP SCH (09:13)
[2016-11-29] MEDS: LACTULOSE 20 GM/30 ML UDC PO SCH ×2 (09:13→20:14)
[2016-11-29] MEDS: PRAZOSIN HCL 1 MG CAPSULE PO SCH ×2 (09:14→20:17)
[2016-11-29] MEDS: RIFAXIMIN 550 MG TABLET PO SCH ×2 (09:15→20:17)
[2016-11-29] MEDS: METOPROLOL TARTRATE 50 MG TABLET PO SCH ×2 (09:15→20:18)
[2016-11-29 09:34] LABS: CALCIUM 8.5 mg/dL (8.4-11.0); CREATININE 1.78 mg/dL (0.55-1.30); POTASSIUM 4.9 mmol/L (3.5-5.1)
[2016-11-29 09:49] LABS: ALBUMIN 3.1 g/dL (3.4-4.8); TOTAL BILIRUBIN 0.4 mg/dL (0.0-1.0)
[2016-11-29] MEDS: levETIRAcetam 500 MG in NS 100 ML IV SCH ×2 (09:53→20:19)
[2016-11-29] MEDS: NIFEDIPINE 60 MG TABLET.SA (PROCARDIA XL 60 MG) PO SCH ×2 (10:29→20:16)
[2016-11-29] MEDS: cloNIDine HCL 0.1 MG TABLET PO PRN (10:29)
[2016-11-29] MEDS: MINOXIDIL 10 MG TABLET (LONITEN) PO SCH ×2 (15:04→20:15)
[2016-11-29] MEDS: cefTRIAXone 1 GM IVPB PREMIX 50 ML IV SCH (20:20)
[2016-11-29] MEDS: ENOXAPARIN SODIUM 30 MG/0.3 ML SYRINGE SUBCUT SCH (21:16)
[2016-11-30] VITALS (24 sets, daily range): BP systolic 150–192
[2016-11-30] MEDS: METOCLOPRAMIDE HCL 10 MG/2 ML VIAL IVP SCH ×4 (03:06→17:47)
[2016-11-30] MEDS: LABETALOL 100 MG/ 20ML VIAL IVP PRN ×5 (03:13→17:48)
[2016-11-30] MEDS: LEVOTHYROXINE SODIUM 0.1 MG VIAL IVP SCH (05:33)
[2016-11-30] MEDS: SODIUM BICARBONATE 650 MG TABLET PO SCH ×3 (05:34→22:00)
[2016-11-30] MEDS: PANTOPRAZOLE SODIUM 40 MG/VIAL (PROTONIX) IVP SCH (08:27)
[2016-11-30] MEDS: LACTULOSE 20 GM/30 ML UDC PO SCH ×2 (08:27→20:37)
[2016-11-30] MEDS: MINOXIDIL 10 MG TABLET (LONITEN) PO SCH ×2 (08:28→20:37)
[2016-11-30] MEDS: PRAZOSIN HCL 1 MG CAPSULE PO SCH ×2 (08:30→20:38)
[2016-11-30] MEDS: RIFAXIMIN 550 MG TABLET PO SCH ×2 (08:33→20:45)
[2016-11-30] MEDS: METOPROLOL TARTRATE 50 MG TABLET PO SCH ×2 (08:34→20:37)
[2016-11-30] MEDS: KCL 20 mEq in 0.45% NS 1000 mL 1,000 ML IV SCH (08:49)
[2016-11-30] MEDS: ANTIFUNGAL CLEAR OINTMENT TP SCH ×2 (08:50→21:08)
[2016-11-30] MEDS: levETIRAcetam 500 MG in NS 100 ML IV SCH ×2 (08:52→20:17)
[2016-11-30] MEDS: NIFEDIPINE 60 MG TABLET.SA (PROCARDIA XL 60 MG) PO SCH ×2 (10:23→20:38)
[2016-11-30 10:43] LABS: BASOPHILS % (AUTO) 0.2 % (0.0-2.0); EOSINOPHILS % (AUTO) 0.8 % (0.0-4.0); HEMATOCRIT 24.3 % (36-48); HEMOGLOBIN 7.8 g/dL (12.0-16.0); LYMPHOCYTES # (AUTO) 0.7 K/uL (1.0-5.5); LYMPHOCYTES % (AUTO) 16.8 % (20.5-51.5); MEAN CORPUSCULAR HEMOGLOBIN 30 pg (27-31); MEAN CORPUSCULAR HGB CONC 32 % (32-36); MEAN CORPUSCULAR VOLUME 94 fL (79.0-98.0); MONOCYTES # (AUTO) 0.2 K/uL (0.0-1.0); MONOCYTES % (AUTO) 4.9 % (1.7-9.3); NEUTROPHILS # (AUTO) 3.3 K/uL (1.8-7.7); NEUTROPHILS % (AUTO) 77.3 % (40.0-70.0); PLATELET COUNT (AUTO) 178 K/uL (130-430); RED BLOOD CELL COUNT(AUTO) 2.58 MIL/uL (4.2-6.2); RED CELL DISTRIBUTION WIDTH 15.5 % (9.0-15.0); WHITE BLOOD COUNT (AUTO) 4.2 K/uL (4.8-10.8)
[2016-11-30 11:00] LABS: CALCIUM 8.7 mg/dL (8.4-11.0); POTASSIUM 5.1 mmol/L (3.5-5.1); TOTAL BILIRUBIN 0.3 mg/dL (0.0-1.0)
[2016-11-30 11:03] LABS: CREATININE 1.65 mg/dL (0.55-1.30)
[2016-11-30] MEDS ORDERED: MORPHINE 2 MG/ML INJ. SYRINGE ONE (11:47)
[2016-11-30] MEDS: cloNIDine HCL 0.1 MG TABLET PO PRN (14:12)
[2016-11-30] MEDS: MORPHINE 2 MG/ML INJ. SYRINGE IVP PRN ×2 (14:26→23:05)
[2016-11-30] MEDS ORDERED: MORPHINE 2 MG/ML INJ. SYRINGE IVP ONE (15:30)
[2016-11-30 18:04] LABS: INR 1.2 (0.8-1.2); PROTHROMBIN TIME 12.7 SECS (9.5-12.5)
[2016-11-30] MEDS: ENOXAPARIN SODIUM 30 MG/0.3 ML SYRINGE SUBCUT SCH (20:24)
[2016-11-30] MEDS ORDERED: ENALAPRILAT DIHYDRATE 1.25 MG/ML VIAL ONE (20:42)
[2016-11-30] MEDS: cefTRIAXone 1 GM IVPB PREMIX 50 ML IV SCH (20:43)
[2016-11-30] MEDS: ENALAPRILAT DIHYDRATE 1.25 MG/ML VIAL IVP PRN (21:06)
[2016-12-01] VITALS (19 sets, daily range): BP systolic 126–215
[2016-12-01] MEDS: LABETALOL 100 MG/ 20ML VIAL IVP PRN ×2 (00:10→08:11)
[2016-12-01] MEDS: KCL 20 mEq in 0.45% NS 1000 mL 1,000 ML IV SCH ×3 (00:11→23:56)
[2016-12-01] MEDS: METOCLOPRAMIDE HCL 10 MG/2 ML VIAL IVP SCH ×5 (00:23→23:55)
[2016-12-01] MEDS: ENALAPRILAT DIHYDRATE 1.25 MG/ML VIAL IVP PRN ×2 (02:00→03:32)
[2016-12-01] MEDS: MORPHINE 2 MG/ML INJ. SYRINGE IVP PRN ×2 (05:18→22:28)
[2016-12-01] MEDS: LEVOTHYROXINE SODIUM 0.1 MG VIAL IVP SCH (06:00)
[2016-12-01] MEDS: SODIUM BICARBONATE 650 MG TABLET PO SCH ×3 (06:00→21:28)
[2016-12-01 06:22] LABS: INR 1.1 (0.8-1.2); PROTHROMBIN TIME 11.7 SECS (9.5-12.5)
[2016-12-01 06:25] LABS: BASOPHILS % (AUTO) 0.5 % (0.0-2.0); EOSINOPHILS # (AUTO) 0.1 K/uL (0.0-0.4); EOSINOPHILS % (AUTO) 2.4 % (0.0-4.0); HEMATOCRIT 26.4 % (36-48); HEMOGLOBIN 8.8 g/dL (12.0-16.0); LYMPHOCYTES # (AUTO) 0.9 K/uL (1.0-5.5); LYMPHOCYTES % (AUTO) 19.3 % (20.5-51.5); MEAN CORPUSCULAR HEMOGLOBIN 31 pg (27-31); MEAN CORPUSCULAR HGB CONC 33 % (32-36); MEAN CORPUSCULAR VOLUME 94 fL (79.0-98.0); MONOCYTES # (AUTO) 0.3 K/uL (0.0-1.0); MONOCYTES % (AUTO) 6.4 % (1.7-9.3); NEUTROPHILS # (AUTO) 3.4 K/uL (1.8-7.7); NEUTROPHILS % (AUTO) 71.4 % (40.0-70.0); PLATELET COUNT (AUTO) 207 K/uL (130-430); RED CELL DISTRIBUTION WIDTH 15.6 % (9.0-15.0); WHITE BLOOD COUNT (AUTO) 4.7 K/uL (4.8-10.8)
[2016-12-01 07:02] LABS: ALBUMIN 2.9 g/dL (3.4-4.8); CALCIUM 8.6 mg/dL (8.4-11.0); CREATININE 1.57 mg/dL (0.55-1.30); POTASSIUM 5.1 mmol/L (3.5-5.1); TOTAL BILIRUBIN 0.3 mg/dL (0.0-1.0)
[2016-12-01] MEDS: METOPROLOL TARTRATE 50 MG TABLET PO SCH ×2 (08:11→21:28)
[2016-12-01] MEDS: MINOXIDIL 10 MG TABLET (LONITEN) PO SCH ×2 (08:11→21:27)
[2016-12-01] MEDS: NIFEDIPINE 60 MG TABLET.SA (PROCARDIA XL 60 MG) PO SCH ×2 (08:12→21:27)
[2016-12-01] MEDS: ANTIFUNGAL CLEAR OINTMENT TP SCH ×2 (08:12→21:00)
[2016-12-01] MEDS: RIFAXIMIN 550 MG TABLET PO SCH ×2 (08:12→21:27)
[2016-12-01] MEDS: PANTOPRAZOLE SODIUM 40 MG/VIAL (PROTONIX) IVP SCH (08:13)
[2016-12-01] MEDS: cloNIDine HCL 0.1 MG TABLET PO PRN (08:13)
[2016-12-01] MEDS: LACTULOSE 20 GM/30 ML UDC PO SCH ×2 (08:13→21:24)
[2016-12-01] MEDS: levETIRAcetam 500 MG in NS 100 ML IV SCH ×2 (08:31→21:34)
[2016-12-01] MEDS: FUROSEMIDE 40 MG TABLET PO SCH (09:00)
[2016-12-01] MEDS: cloNIDine HCL 0.1 MG TABLET PO SCH ×3 (09:00→21:27)
[2016-12-01] MEDS: ENOXAPARIN SODIUM 30 MG/0.3 ML SYRINGE SUBCUT SCH (21:28)
[2016-12-01] MEDS: cefTRIAXone 1 GM IVPB PREMIX 50 ML IV SCH (21:38)
[2016-12-02 03:31] VITALS: BP_SYST 159
[2016-12-02] MEDS: MORPHINE 2 MG/ML INJ. SYRINGE IVP PRN ×3 (05:23→21:48)
[2016-12-02] MEDS: METOCLOPRAMIDE HCL 10 MG/2 ML VIAL IVP SCH ×3 (05:29→19:12)
[2016-12-02] MEDS: SODIUM BICARBONATE 650 MG TABLET PO SCH ×3 (05:29→21:32)
[2016-12-02] MEDS: LEVOTHYROXINE SODIUM 0.1 MG VIAL IVP SCH (05:37)
[2016-12-02] MEDS: levETIRAcetam 500 MG in NS 100 ML IV SCH ×2 (08:59→21:59)
[2016-12-02] MEDS: PANTOPRAZOLE SODIUM 40 MG/VIAL (PROTONIX) IVP SCH (08:59)
[2016-12-02] MEDS: ANTIFUNGAL CLEAR OINTMENT TP SCH (08:59)
[2016-12-02] MEDS: cloNIDine HCL 0.1 MG TABLET PO SCH ×3 (09:00→21:06)
[2016-12-02] MEDS: LACTULOSE 20 GM/30 ML UDC PO SCH ×2 (09:00→21:05)
[2016-12-02] MEDS: FUROSEMIDE 40 MG TABLET PO SCH (09:00)
[2016-12-02] MEDS: METOPROLOL TARTRATE 50 MG TABLET PO SCH ×2 (09:00→21:08)
[2016-12-02] MEDS: RIFAXIMIN 550 MG TABLET PO SCH ×2 (09:00→21:07)
[2016-12-02] MEDS: MINOXIDIL 10 MG TABLET (LONITEN) PO SCH ×2 (09:00→21:07)
[2016-12-02] MEDS: NIFEDIPINE 60 MG TABLET.SA (PROCARDIA XL 60 MG) PO SCH ×2 (09:00→21:07)
[2016-12-02] MEDS: ENALAPRILAT DIHYDRATE 1.25 MG/ML VIAL IVP PRN ×2 (09:15→19:13)
[2016-12-02 12:33] VITALS: BP_SYST 112
[2016-12-02 16:28] VITALS: BP_SYST 143
[2016-12-02] MEDS: KCL 20 mEq in 0.45% NS 1000 mL 1,000 ML IV SCH (18:59)
[2016-12-02 20:00] VITALS: BP_SYST 176
[2016-12-02] MEDS: LEVOFLOXACIN 250 MG/D5W 50 ML IV SCH (20:09)
[2016-12-02] MEDS: ENOXAPARIN SODIUM 30 MG/0.3 ML SYRINGE SUBCUT SCH (21:05)
[2016-12-02] MEDS: INSULIN REGULAR, HUMAN 100 UNITS/ML, 10 ML VIAL (novoLIN R) SUBCUT PRN (21:32)
[2016-12-02] MEDS: cefTRIAXone 1 GM IVPB PREMIX 50 ML IV SCH (21:36)
[2016-12-02 23:34] VITALS: BP_SYST 148
[2016-12-03] MEDS: METOCLOPRAMIDE HCL 10 MG/2 ML VIAL IVP SCH ×4 (00:03→17:46)
[2016-12-03] MEDS: ANTIFUNGAL CLEAR OINTMENT TP SCH ×3 (00:08→23:41)
[2016-12-03] MEDS: KCL 20 mEq in 0.45% NS 1000 mL 1,000 ML IV SCH ×2 (03:20→13:18)
[2016-12-03 03:54] VITALS: BP_SYST 125
[2016-12-03] MEDS: LEVOTHYROXINE SODIUM 0.1 MG VIAL IVP SCH (06:03)
[2016-12-03] MEDS: INSULIN REGULAR, HUMAN 100 UNITS/ML, 10 ML VIAL (novoLIN R) SUBCUT PRN (06:31)
[2016-12-03] MEDS: SODIUM BICARBONATE 650 MG TABLET PO SCH ×3 (06:32→22:07)
[2016-12-03 07:32] LABS: BASOPHILS % (AUTO) 0.3 % (0.0-2.0); EOSINOPHILS # (AUTO) 0.2 K/uL (0.0-0.4); EOSINOPHILS % (AUTO) 3.8 % (0.0-4.0); HEMATOCRIT 28.4 % (36-48); HEMOGLOBIN 9.1 g/dL (12.0-16.0); LYMPHOCYTES # (AUTO) 0.8 K/uL (1.0-5.5); LYMPHOCYTES % (AUTO) 15.3 % (20.5-51.5); MEAN CORPUSCULAR HEMOGLOBIN 30 pg (27-31); MEAN CORPUSCULAR HGB CONC 32 % (32-36); MEAN CORPUSCULAR VOLUME 93 fL (79.0-98.0); MONOCYTES # (AUTO) 0.4 K/uL (0.0-1.0); MONOCYTES % (AUTO) 7.4 % (1.7-9.3); NEUTROPHILS # (AUTO) 3.8 K/uL (1.8-7.7); NEUTROPHILS % (AUTO) 73.2 % (40.0-70.0); PLATELET COUNT (AUTO) 190 K/uL (130-430); RED BLOOD CELL COUNT(AUTO) 3.07 MIL/uL (4.2-6.2); RED CELL DISTRIBUTION WIDTH 15.3 % (9.0-15.0); WHITE BLOOD COUNT (AUTO) 5.2 K/uL (4.8-10.8)
[2016-12-03 07:56] VITALS: BP_SYST 159
[2016-12-03 08:07] LABS: ALBUMIN 2.7 g/dL (3.4-4.8); CALCIUM 8.5 mg/dL (8.4-11.0); CREATININE 1.56 mg/dL (0.55-1.30); POTASSIUM 5.4 mmol/L (3.5-5.1); TOTAL BILIRUBIN 0.2 mg/dL (0.0-1.0)
[2016-12-03 08:38] LABS: BILIRUBIN,URINE NEGATIVE (NEGATIVE); BLOOD, URINE 3+ (NEGATIVE); CLARITY/URINE HAZY (CLEAR); COLOR,URINE YELLOW (YELLOW); GLUCOSE,URINE NEGATIVE (NEGATIVE); KETONES,URINE NEGATIVE (NEGATIVE); LEUKOCYTE ESTERASE ,URINE 1+ (NEGATIVE); NITRITE, URINE NEGATIVE (NEGATIVE); PROTEIN URINE 2+ (NEGATIVE); UROBILINOGEN,URINE 0.2 (0.2-1.0)
[2016-12-03 09:00] LABS: RBC,URINE >100 /HPF (0-3)
[2016-12-03 09:01] LABS: BACTERIA,URINE FEW /HPF (None Seen); MUCUS,URINE None Seen /LPF (None Seen)
[2016-12-03] MEDS: PANTOPRAZOLE SODIUM 40 MG/VIAL (PROTONIX) IVP SCH (10:22)
[2016-12-03] MEDS: MINOXIDIL 10 MG TABLET (LONITEN) PO SCH ×2 (10:22→22:14)
[2016-12-03] MEDS: RIFAXIMIN 550 MG TABLET PO SCH ×2 (10:22→22:18)
[2016-12-03] MEDS: NIFEDIPINE 60 MG TABLET.SA (PROCARDIA XL 60 MG) PO SCH ×2 (10:23→22:17)
[2016-12-03] MEDS: cloNIDine HCL 0.1 MG TABLET PO SCH ×3 (10:23→22:18)
[2016-12-03] MEDS: METOPROLOL TARTRATE 50 MG TABLET PO SCH ×2 (10:24→22:18)
[2016-12-03] MEDS: FUROSEMIDE 40 MG TABLET PO SCH (10:24)
[2016-12-03] MEDS: levETIRAcetam 500 MG in NS 100 ML IV SCH ×2 (10:28→23:06)
[2016-12-03] MEDS: LACTULOSE 20 GM/30 ML UDC PO SCH ×2 (10:40→22:06)
[2016-12-03 12:42] VITALS: BP_SYST 159
[2016-12-03 14:18] VITALS: BP_SYST 159
[2016-12-03 16:30] VITALS: BP_SYST 152
[2016-12-03] MEDS: LEVOFLOXACIN 250 MG/D5W 50 ML IV SCH (22:00)
[2016-12-03] MEDS: cefTRIAXone 1 GM IVPB PREMIX 50 ML IV SCH (23:41)
[2016-12-03 23:52] VITALS: BP_SYST 120
[2016-12-04] MEDS: METOCLOPRAMIDE HCL 10 MG/2 ML VIAL IVP SCH ×4 (00:25→18:03)
[2016-12-04 03:45] VITALS: BP_SYST 140
[2016-12-04] MEDS: LEVOTHYROXINE SODIUM 0.1 MG VIAL IVP SCH (06:00)
[2016-12-04] MEDS: KCL 20 mEq in 0.45% NS 1000 mL 1,000 ML IV SCH ×2 (06:00→15:25)
[2016-12-04] MEDS: SODIUM BICARBONATE 650 MG TABLET PO SCH ×2 (06:20→14:34)
[2016-12-04 08:34] VITALS: BP_SYST 122
[2016-12-04] MEDS: NIFEDIPINE 60 MG TABLET.SA (PROCARDIA XL 60 MG) PO SCH (09:06)
[2016-12-04] MEDS: LACTULOSE 20 GM/30 ML UDC PO SCH (09:06)
[2016-12-04] MEDS: RIFAXIMIN 550 MG TABLET PO SCH (09:07)
[2016-12-04] MEDS: METOPROLOL TARTRATE 50 MG TABLET PO SCH (09:08)
[2016-12-04] MEDS: MINOXIDIL 10 MG TABLET (LONITEN) PO SCH (09:08)
[2016-12-04] MEDS: PANTOPRAZOLE SODIUM 40 MG/VIAL (PROTONIX) IVP SCH (09:09)
[2016-12-04] MEDS: cloNIDine HCL 0.1 MG TABLET PO SCH ×2 (09:09→14:37)
[2016-12-04] MEDS: levETIRAcetam 500 MG in NS 100 ML IV SCH (09:10)
[2016-12-04] MEDS: ANTIFUNGAL CLEAR OINTMENT TP SCH (09:11)
[2016-12-04] MEDS: FUROSEMIDE 40 MG TABLET PO SCH (09:11)
[2016-12-04] MEDS: INSULIN REGULAR, HUMAN 100 UNITS/ML, 10 ML VIAL (novoLIN R) SUBCUT PRN ×2 (12:08→18:14)
[2016-12-04 12:51] VITALS: BP_SYST 104
[2016-12-04 16:20] VITALS: BP_SYST 110
[2016-12-04] MEDS ORDERED: SPIRONOLACTONE 50 MG TABLET (ALDACTONE) PO ONE (17:45)
[2016-12-04 19:57] VITALS: BP_SYST 136
[2016-12-04] MEDS ORDERED: FUROSEMIDE 40 MG/4 ML VIAL IVP SCH (21:00)
[2016-12-05] MEDS ORDERED: SPIRONOLACTONE 50 MG TABLET (ALDACTONE) PO SCH (09:00)
== END 2016-12-04 21:20 | DRG 441 ==
LOC: SED 14:25 → STU 19:31 → SIC 11-28 18:57 → STU 12-01 17:33
PROVIDERS: ADMIT Family Medicine; ATTEND Family Medicine
PROC: 02HV33Z Insertion of Infusion Device into Superior Vena Cava, Percutaneous Approach (ICD-10-PCS; principal; 2016-12-01)
PROC: B548ZZA Ultrasonography of Superior Vena Cava, Guidance (ICD-10-PCS; 2016-12-01)
DX: K72.90 Hepatic failure, unspecified without coma (principal); K65.9 Peritonitis, unspecified; I62.9 Nontraumatic intracranial hemorrhage, unspecified; J18.9 Pneumonia, unspecified organism; R18.8 Other ascites; I13.10 Hypertensive heart and chronic kidney disease without heart failure, with stage 1 through stage 4 chronic kidney disease, or unspecified chronic kidney disease; N39.0 Urinary tract infection, site not specified; K74.60 Unspecified cirrhosis of liver; E11.22 Type 2 diabetes mellitus with diabetic chronic kidney disease; D64.9 Anemia, unspecified; E11.51 Type 2 diabetes mellitus with diabetic peripheral angiopathy without gangrene; B19.20 Unspecified viral hepatitis C without hepatic coma; E03.9 Hypothyroidism, unspecified; K74.1 Hepatic sclerosis; N18.9 Chronic kidney disease, unspecified; R56.9 Unspecified convulsions; Z90.710 Acquired absence of both cervix and uterus; Z88.8 Allergy status to other drugs, medicaments and biological substances
CPT/HCPCS: 36415; 70450-TC; 71010; 74020-TC; 76700-TC; 76857; 80048; 80053; 81000-TC; 82140-TC; 82150-TC; 82962; 83690-TC; 83735-TC; 83880; 84100-TC; 84484; 85025; 85610-TC; 85730-TC; 87081; 87086; 93005; 95816; 96374; 96375; 96376; 97110-GP; 97116-GP; 97530-GP; 99285; C1751; C9113; J0696; J1170; J1650; J1815; J1953; J1956; J2060; J2270; J2405; J2765; J3480; J3490; J7030; J8597